=== PATIENT | male | born 1955 | race Two or more races ===

== ENCOUNTER 2016-04-16 00:28 | Inpatient (IN) | payer MEDICAID ==
[~2016-04-16] VITALS: Ht 175.3 cm; Wt 129.0 kg
[~2016-04-16 00:28] MED LIST: ASPI325T25 PO; ATOR40TA52 PO; CAR3125T PO; CLOP75TA41 PO; FAMO-12 PO; FENO134C PO; FURO40TA PO; LISI2.5T47 PO; NITR0.4S31 SL; POTA8CAP6 PO; ZOLP10TA PO
[2016-04-16 01:07] LABS: Basophils # (auto) 0.1 uL; Basophils % (auto) 1.1 % (0.0-2.0); Eosinophils # (auto) 0.1 uL; Eosinophils % (auto) 1.3 % (0.0-7.0); Hematocrit 47.2 % (41.0-53.0); Lymphocytes # (auto) 4.2 uL; Lymphocytes % (auto) 36.9 % (10.0-50.0); Mean Corpuscular Hemoglobin 31.3 pg (28.0-32.0); Mean Corpuscular Hgb Conc. 33.8 g/dL (32.0-36.0); Mean Corpuscular Volume 92.4 fL (80.0-100.0); Mean Platelet Volume 8.3 fL (7.4-10.4); Monocytes % (auto) 8.8 % (0.0-12.0); Neutrophils # (auto) 6.1 uL; Neutrophils % (auto) 51.9 % (37.0-80.0); Platelet Count (auto) 325 10^3/uL (140-450); Red Cell Distribution Width 13.6 % (11.6-16.0); White Blood Cell 11.5 10^3/uL (4.4-10.8)
[2016-04-16 01:17] LABS: INR 1.1 (0.9-1.15); Partial Thromboplastin Time 25.5 sec (22.64-33.71); Prothrombin Time 11.3 sec (9.37-12.3)
[2016-04-16 01:20] LABS: Albumin 3.5 g/dL (3.4-5.0); BUN/Creatinine Ratio 20.6; Calcium 8.4 mg/dL (8.5-10.1); Magnesium 2.5 mg/dL (1.6-2.6); Potassium 4.5 mmol/L (3.5-5.1)
[2016-04-16 01:23] LABS: Bilirubin, Total 0.4 mg/dL (0.2-1.0); Total Protein 7.1 g/dL (6.4-8.2)
[2016-04-16] MEDS ORDERED: HYDROmorphone HCL 2 MG/ML VL IV ONE (02:30)
[2016-04-16] MEDS ORDERED: ONDANSETRON HCL 4 MG/2 ML VIAL IV ONE (02:30)
[2016-04-16 02:34] LABS: Temperature: 21.6 C (20.0-25.0)
[2016-04-16] MEDS ORDERED: ACETAMINOPHEN 325 MG TAB PO PRN (07:00)
[2016-04-16] MEDS ORDERED: ONDANSETRON HCL 4 MG/2 ML VIAL IV PRN (07:00)
[2016-04-16] MEDS ORDERED: MORPHINE SULF INJ 2 MG/ML SYRINGE 1ML IV PRN (07:00)
[2016-04-16] MEDS ORDERED: NITROGLYCERIN 0.4 MG SL TAB SL PRN (07:00)
[2016-04-16] MEDS ORDERED: TEMAZEPAM 15 MG CAP PO PRN (07:00)
[2016-04-16] MEDS: FUROSEMIDE 40 MG TAB PO SCH ×3 (07:15→17:31)
[2016-04-16 08:41] VITALS: BP 110/78
[2016-04-16] MEDS: ENOXAPARIN SOD 40 MG/0.4 ML SYRINGE SC SCH (10:57)
[2016-04-16] MEDS: HYDROcodone-ACET 5/325MG TAB PO PRN ×2 (10:57→17:23)
[2016-04-16] MEDS: ASPirin 325 MG TAB PO SCH (10:57)
[2016-04-16] MEDS: CARVEDILOL 3.125 MG TAB PO SCH ×2 (10:59→21:55)
[2016-04-16] MEDS: POTASSIUM CHLORIDE 8 MEQ TAB PO SCH ×2 (10:59→21:54)
[2016-04-16] MEDS: CLOPIDOGREL BISULFATE 75 MG TAB PO SCH (10:59)
[2016-04-16] MEDS: LISINOPRIL 5 MG TAB PO SCH ×2 (10:59→21:54)
[2016-04-16] MEDS: FAMOTIDINE 20 MG TAB PO SCH ×2 (11:00→21:55)
[2016-04-16 11:40] VITALS: BP 107/67
[2016-04-16 16:40] VITALS: BP 112/72
[2016-04-16 21:57] VITALS: BP 115/70
[2016-04-16] MEDS ORDERED: ATORVASTATIN 20 MG TAB PO SCH (22:00)
[2016-04-17 05:41] VITALS: BP 131/86
[2016-04-17] MEDS: FUROSEMIDE 40 MG TAB PO SCH (05:48)
[2016-04-17 06:05] LABS: Basophils # (auto) 0.1 uL; Basophils % (auto) 0.7 % (0.0-2.0); Eosinophils # (auto) 0.2 uL; Eosinophils % (auto) 3.1 % (0.0-7.0); Hematocrit 46.1 % (41.0-53.0); Hemoglobin 15.4 g/dL (13.5-17.5); Lymphocytes # (auto) 3.3 uL; Lymphocytes % (auto) 42.1 % (10.0-50.0); Mean Corpuscular Hemoglobin 30.7 pg (28.0-32.0); Mean Corpuscular Hgb Conc. 33.4 g/dL (32.0-36.0); Mean Corpuscular Volume 91.9 fL (80.0-100.0); Mean Platelet Volume 8.7 fL (7.4-10.4); Monocytes # (auto) 0.7 uL; Monocytes % (auto) 8.9 % (0.0-12.0); Neutrophils # (auto) 3.5 uL; Neutrophils % (auto) 45.2 % (37.0-80.0); Platelet Count (auto) 286 10^3/uL (140-450); Red Cell Distribution Width 14.1 % (11.6-16.0); White Blood Cell 7.9 10^3/uL (4.4-10.8)
[2016-04-17 06:07] LABS: Albumin 3.2 g/dL (3.4-5.0); BUN/Creatinine Ratio 21.4; Bilirubin, Total 0.6 mg/dL (0.2-1.0); Calcium 7.9 mg/dL (8.5-10.1); Total Protein 6.8 g/dL (6.4-8.2)
[2016-04-17] MEDS: HYDROcodone-ACET 5/325MG TAB PO PRN ×2 (08:28→15:37)
[2016-04-17 08:53] VITALS: BP 139/83
[2016-04-17] MEDS: ENOXAPARIN SOD 40 MG/0.4 ML SYRINGE SC SCH (09:08)
[2016-04-17] MEDS: FAMOTIDINE 20 MG TAB PO SCH (09:09)
[2016-04-17] MEDS: CARVEDILOL 3.125 MG TAB PO SCH (09:09)
[2016-04-17] MEDS: POTASSIUM CHLORIDE 8 MEQ TAB PO SCH (09:11)
[2016-04-17] MEDS: CLOPIDOGREL BISULFATE 75 MG TAB PO SCH (09:11)
[2016-04-17] MEDS: ASPirin 325 MG TAB PO SCH (09:11)
[2016-04-17] MEDS: LISINOPRIL 5 MG TAB PO SCH (09:11)
[2016-04-17 13:00] VITALS: BP 111/77
[2016-04-17 17:00] VITALS: BP 150/82
[2016-04-17 18:08] VITALS: BP 150/82
== END 2016-04-17 19:00 | disposition home or self-care (01) | DRG 198 ==
LOC: EDBD 00:28 → ER 00:30 → TELE 00:31 → TELE-E-ADS 08:38 → TELE-CENTR 09:38
PROVIDERS: ADMIT Internal Medicine; ATTEND Internal Medicine
DX: R07.9 Chest pain, unspecified (principal); I25.2 Old myocardial infarction; N17.9 Acute kidney failure, unspecified; I42.0 Dilated cardiomyopathy; Z76.82 Awaiting organ transplant status; E44.0 Moderate protein-calorie malnutrition; Z68.41 Body mass index [BMI] 40.0-44.9, adult; I50.9 Heart failure, unspecified; I13.0 Hypertensive heart and chronic kidney disease with heart failure and stage 1 through stage 4 chronic kidney disease, or unspecified chronic kidney disease; I25.5 Ischemic cardiomyopathy; E66.01 Morbid (severe) obesity due to excess calories; N18.9 Chronic kidney disease, unspecified; I25.10 Atherosclerotic heart disease of native coronary artery without angina pectoris; J45.909 Unspecified asthma, uncomplicated; K21.9 Gastro-esophageal reflux disease without esophagitis; E78.5 Hyperlipidemia, unspecified; Z86.73 Personal history of transient ischemic attack (TIA), and cerebral infarction without residual deficits; Z95.0 Presence of cardiac pacemaker; Z80.1 Family history of malignant neoplasm of trachea, bronchus and lung; Z82.49 Family history of ischemic heart disease and other diseases of the circulatory system; Z82.5 Family history of asthma and other chronic lower respiratory diseases; Z83.3 Family history of diabetes mellitus; Z82.3 Family history of stroke; Z83.42 Family history of familial hypercholesterolemia; Z95.1 Presence of aortocoronary bypass graft; Z83.49 Family history of other endocrine, nutritional and metabolic diseases; Z98.61 Coronary angioplasty status; Z79.899 Other long term (current) drug therapy; Z79.82 Long term (current) use of aspirin
CPT/HCPCS: 36415; 71010; 78582; 80053; 83735; 83880; 84484; 85025; 85049; 85379; 85610; 85730; 93005; 93306; 94761; 96374; 96375; J2405

== ENCOUNTER 2016-06-15 20:33 | Emergency (ER) | payer MEDICAID ==
[~2016-06-15] VITALS: Ht 175.3 cm; Wt 127.0 kg
[2016-06-15 21:33] VITALS: BP 109/73
[2016-06-15 22:58] LABS: Basophils # (auto) 0.1 uL; Basophils % (auto) 0.7 % (0.0-2.0); Eosinophils # (auto) 0.2 uL; Eosinophils % (auto) 2.2 % (0.0-7.0); Hematocrit 45.6 % (41.0-53.0); Hemoglobin 15.4 g/dL (13.5-17.5); Lymphocytes % (auto) 36.1 % (10.0-50.0); Mean Corpuscular Hemoglobin 31.1 pg (28.0-32.0); Mean Corpuscular Hgb Conc. 33.7 g/dL (32.0-36.0); Mean Corpuscular Volume 92.2 fL (80.0-100.0); Mean Platelet Volume 8.4 fL (7.4-10.4); Monocytes # (auto) 0.8 uL; Monocytes % (auto) 9.4 % (0.0-12.0); Neutrophils # (auto) 4.3 uL; Neutrophils % (auto) 51.6 % (37.0-80.0); Platelet Count (auto) 341 10^3/uL (140-450); Red Cell Distribution Width 15.3 % (11.6-16.0); White Blood Cell 8.3 10^3/uL (4.4-10.8)
[2016-06-15 23:20] LABS: Albumin 3.8 g/dL (3.4-5.0); BUN/Creatinine Ratio 15.8; Calcium 8.8 mg/dL (8.5-10.1); Magnesium 2.5 mg/dL (1.6-2.6); Potassium 4.3 mmol/L (3.5-5.1)
[2016-06-15 23:25] LABS: Bilirubin, Total 0.3 mg/dL (0.2-1.0); Total Protein 7.5 g/dL (6.4-8.2)
[2016-06-15 23:31] LABS: Urine Bilirubin Negative (Negative); Urine Blood Negative /uL (Negative); Urine Color Yellow (Yellow); Urine Glucose Normal (Normal); Urine Hyaline Cast MANY /lpf (0 - 2); Urine Ketone Negative (Negative); Urine Mucus FEW (None Seen); Urine Nitrite Negative (Negative); Urine RBC 1 /hpf (0 - 3); Urine Sperm PRESENT /hpf (None Seen); Urine Squamous Epithelial Cell FEW /hpf (<5); Urine Urobilinogen Normal (Negative)
[2016-06-15 23:32] LABS: B-Type Natriuretic Peptide 192.01 pg/mL (0-100); Temperature: 22.2 C (20.0-25.0)
[2016-06-15] MEDS ORDERED: diphenhdrAMINE HCL 25 MG CAP PO ONE (23:45)
[2016-06-15] MEDS ORDERED: methylPREDNISolone SOD SUCC 125 MG/2 ML VL IM ONE (23:45)
== END 2016-06-16 03:24 | disposition left against medical advice (07) ==
LOC: ER 20:45
DX: M54.5 Low back pain (principal); R10.9 Unspecified abdominal pain; Z53.21 Procedure and treatment not carried out due to patient leaving prior to being seen by health care provider
CPT/HCPCS: 36415; 72100; 74176; 80053; 81001; 83735; 83880; 84484; 85025; 93005

== ENCOUNTER 2016-07-03 16:19 | Inpatient (IN) | payer MEDICAID ==
[~2016-07-03] VITALS: Ht 172.7 cm; Wt 98.5 kg
[2016-07-03] MEDS ORDERED: ONDANSETRON HCL 4 MG/2 ML VIAL IV ONE ×2 (17:00→18:30)
[2016-07-03] MEDS ORDERED: MORPHINE SULFATE 4 MG/ML SYRG IV ONE (17:00)
[2016-07-03] MEDS ORDERED: ASPirin 81 mg TAB PO ONE (17:00)
[2016-07-03 17:19] LABS: Albumin 3.4 g/dL (3.4-5.0); BUN/Creatinine Ratio 24.5; Calcium 8.6 mg/dL (8.5-10.1); Potassium 4.3 mmol/L (3.5-5.1)
[2016-07-03 17:23] LABS: Bilirubin, Total 0.2 mg/dL (0.2-1.0); Total Protein 7.2 g/dL (6.4-8.2)
[2016-07-03 17:25] LABS: Basophils # (auto) 0 uL; Basophils % (auto) 0.5 % (0.0-2.0); Eosinophils # (auto) 0.2 uL; Eosinophils % (auto) 2.5 % (0.0-7.0); Hemoglobin 15.4 g/dL (13.5-17.5); Lymphocytes # (auto) 2.9 uL; Lymphocytes % (auto) 36.3 % (10.0-50.0); Mean Corpuscular Hemoglobin 31.1 pg (28.0-32.0); Mean Corpuscular Hgb Conc. 33.6 g/dL (32.0-36.0); Mean Corpuscular Volume 92.5 fL (80.0-100.0); Mean Platelet Volume 8.8 fL (7.4-10.4); Monocytes # (auto) 0.8 uL; Monocytes % (auto) 10.7 % (0.0-12.0); Platelet Count (auto) 309 10^3/uL (140-450); Red Cell Distribution Width 14.9 % (11.6-16.0); White Blood Cell 7.9 10^3/uL (4.4-10.8)
[2016-07-03 18:00] LABS: B-Type Natriuretic Peptide 255.5 pg/mL (0-100); Temperature: 23.9 C (20.0-25.0)
[2016-07-03] MEDS ORDERED: MORPHINE SULF INJ 2 MG/ML SYRINGE 1ML IV ONE (18:30)
[2016-07-03] MEDS ORDERED: NITROGLYCERIN 0.4 MG SL TAB SL PRN ×2 (19:00)
[2016-07-03] MEDS ORDERED: MORPHINE SULF INJ 2 MG/ML SYRINGE 1ML IV PRN (19:00)
[2016-07-03] MEDS ORDERED: ALUM & MAG HYDROX-SIMETH LIQ(MAALOX) 30 ML PO PRN (19:00)
[2016-07-03] MEDS ORDERED: ONDANSETRON HCL 4 MG/2 ML VIAL IV PRN (19:00)
[2016-07-03] MEDS ORDERED: ACETAMINOPHEN 325 MG TAB PO PRN (19:00)
[2016-07-03] MEDS ORDERED: LORazepam 0.5 MG TAB PO PRN (19:00)
[2016-07-03] MEDS ORDERED: CLOPIDOGREL BISULFATE 75 MG TAB PO ONE (19:15)
[2016-07-03] MEDS ORDERED: DOCUSATE SOD 100 MG CAP PO ONE (19:15)
[2016-07-03] MEDS ORDERED: FUROSEMIDE 40 MG TAB PO ONE (19:15)
[2016-07-03 19:33] LABS: INR 0.96 (0.9-1.15); Prothrombin Time 10.4 sec (9.37-12.3)
[2016-07-03] MEDS: ENOXAPARIN SOD 100 MG/1 ML SYRINGE SC SCH (20:02)
[2016-07-03] MEDS: MORPHINE SULF INJ 2 MG/ML SYRINGE 1ML IV PRN ×2 (20:05→22:07)
[2016-07-03 20:44] VITALS: BP 109/68
[2016-07-03 20:50] VITALS: BP 109/68
[2016-07-03] MEDS: CARVEDILOL 3.125 MG TAB PO SCH (21:57)
[2016-07-03] MEDS: ATORVASTATIN 20 MG TAB PO SCH (21:58)
[2016-07-03] MEDS: POTASSIUM CHLORIDE 8 MEQ TAB PO SCH (21:58)
[2016-07-03] MEDS: ZOLPIDEM TARTRATE 5 MG TAB PO PRN (21:58)
[2016-07-03] MEDS: LISINOPRIL 5 MG TAB PO SCH (21:59)
[2016-07-03] MEDS: SODIUM CHLOR 0.9% PF (SALINE LOCK) 10ML VIAL IV SCH (22:01)
[2016-07-04] MEDS: MORPHINE SULF INJ 2 MG/ML SYRINGE 1ML IV PRN (04:52)
[2016-07-04 05:00] VITALS: BP 127/87
[2016-07-04 05:15] LABS: Urine Bilirubin Negative (Negative); Urine Blood Negative /uL (Negative); Urine Color Yellow (Yellow); Urine Glucose Normal (Normal); Urine Ketone Negative (Negative); Urine Nitrite Negative (Negative); Urine RBC <1 /hpf (0 - 3); Urine Sperm PRESENT /hpf (None Seen); Urine Urobilinogen Normal (Negative)
[2016-07-04] MEDS: ENOXAPARIN SOD 100 MG/1 ML SYRINGE SC SCH ×2 (05:33→17:54)
[2016-07-04] MEDS: FUROSEMIDE 40 MG TAB PO SCH ×2 (05:34→17:55)
[2016-07-04] MEDS: SODIUM CHLOR 0.9% PF (SALINE LOCK) 10ML VIAL IV SCH ×3 (05:34→21:14)
[2016-07-04 05:51] LABS: Basophils # (auto) 0 uL; Basophils % (auto) 0.7 % (0.0-2.0); Eosinophils # (auto) 0.3 uL; Eosinophils % (auto) 3.5 % (0.0-7.0); Hematocrit 45.4 % (41.0-53.0); Hemoglobin 15.1 g/dL (13.5-17.5); Lymphocytes # (auto) 2.8 uL; Lymphocytes % (auto) 39.8 % (10.0-50.0); Mean Corpuscular Hemoglobin 30.9 pg (28.0-32.0); Mean Corpuscular Hgb Conc. 33.2 g/dL (32.0-36.0); Mean Corpuscular Volume 93.2 fL (80.0-100.0); Mean Platelet Volume 8.6 fL (7.4-10.4); Monocytes # (auto) 0.6 uL; Monocytes % (auto) 8.9 % (0.0-12.0); Neutrophils # (auto) 3.4 uL; Neutrophils % (auto) 47.1 % (37.0-80.0); Platelet Count (auto) 268 10^3/uL (140-450); Red Cell Distribution Width 14.5 % (11.6-16.0); White Blood Cell 7.1 10^3/uL (4.4-10.8)
[2016-07-04 06:34] LABS: Albumin 3.4 g/dL (3.4-5.0); BUN/Creatinine Ratio 26.4; Bilirubin, Total 0.4 mg/dL (0.2-1.0); Calcium 8.3 mg/dL (8.5-10.1); Magnesium 2.4 mg/dL (1.6-2.6); Potassium 3.9 mmol/L (3.5-5.1); Total Protein 7.2 g/dL (6.4-8.2)
[2016-07-04 08:00] VITALS: BP 127/87
[2016-07-04 09:05] VITALS: BP 112/63
[2016-07-04] MEDS: FENOFIBRATE 134MG PO SCH (10:00)
[2016-07-04] MEDS: CLOPIDOGREL BISULFATE 75 MG TAB PO SCH (10:10)
[2016-07-04] MEDS: POTASSIUM CHLORIDE 8 MEQ TAB PO SCH ×2 (10:10→21:14)
[2016-07-04] MEDS: DOCUSATE SOD 100 MG CAP PO SCH (10:10)
[2016-07-04] MEDS: CARVEDILOL 3.125 MG TAB PO SCH ×2 (10:11→21:11)
[2016-07-04] MEDS: LISINOPRIL 5 MG TAB PO SCH ×2 (10:11→21:12)
[2016-07-04] MEDS: ASPirin-EC 325mg tab PO SCH (10:19)
[2016-07-04 12:55] VITALS: BP 125/61
[2016-07-04] MEDS: ALUM & MAG HYDROX-SIMETH LIQ(MAALOX) 30 ML PO PRN (13:39)
[2016-07-04] MEDS: HYDROcodone-ACET 5/325MG TAB PO PRN ×2 (13:39→21:13)
[2016-07-04 17:00] VITALS: BP 132/79
[2016-07-04] MEDS: ZOLPIDEM TARTRATE 5 MG TAB PO PRN (21:12)
[2016-07-04] MEDS: ATORVASTATIN 20 MG TAB PO SCH (21:12)
[2016-07-04 22:09] VITALS: BP 99/68
[2016-07-05 05:00] VITALS: BP 95/58
[2016-07-05] MEDS: FUROSEMIDE 40 MG TAB PO SCH (06:00)
[2016-07-05] MEDS: SODIUM CHLOR 0.9% PF (SALINE LOCK) 10ML VIAL IV SCH ×2 (06:28→14:16)
[2016-07-05] MEDS: ENOXAPARIN SOD 100 MG/1 ML SYRINGE SC SCH (06:36)
[2016-07-05 06:41] VITALS: BP 117/62
[2016-07-05 08:00] VITALS: BP 117/62
[2016-07-05] MEDS: ALUM & MAG HYDROX-SIMETH LIQ(MAALOX) 30 ML PO PRN (08:43)
[2016-07-05] MEDS: HYDROcodone-ACET 5/325MG TAB PO PRN (09:51)
[2016-07-05] MEDS: CARVEDILOL 3.125 MG TAB PO SCH (09:52)
[2016-07-05] MEDS: CLOPIDOGREL BISULFATE 75 MG TAB PO SCH (09:52)
[2016-07-05] MEDS: LISINOPRIL 5 MG TAB PO SCH (09:54)
[2016-07-05] MEDS: POTASSIUM CHLORIDE 8 MEQ TAB PO SCH (09:54)
[2016-07-05] MEDS: DOCUSATE SOD 100 MG CAP PO SCH (09:55)
[2016-07-05] MEDS: ASPirin-EC 325mg tab PO SCH (09:55)
[2016-07-05] MEDS: FENOFIBRATE 134MG PO SCH (10:00)
[2016-07-05 10:49] VITALS: BP 113/77
== END 2016-07-05 14:20 | disposition home or self-care (01) | DRG 194 ==
LOC: EDBD 16:19 → ER 16:23 → TELE 16:24 → TELE-WESTW 20:48
PROVIDERS: ADMIT Internal Medicine; ATTEND Internal Medicine
DX: I13.0 Hypertensive heart and chronic kidney disease with heart failure and stage 1 through stage 4 chronic kidney disease, or unspecified chronic kidney disease (principal); Z76.82 Awaiting organ transplant status; N18.3 Chronic kidney disease, stage 3 (moderate); E66.01 Morbid (severe) obesity due to excess calories; I73.9 Peripheral vascular disease, unspecified; E78.5 Hyperlipidemia, unspecified; E66.9 Obesity, unspecified; K21.9 Gastro-esophageal reflux disease without esophagitis; Z68.33 Body mass index [BMI] 33.0-33.9, adult; I25.10 Atherosclerotic heart disease of native coronary artery without angina pectoris; I25.2 Old myocardial infarction; I25.5 Ischemic cardiomyopathy; I50.43 Acute on chronic combined systolic (congestive) and diastolic (congestive) heart failure; J45.909 Unspecified asthma, uncomplicated; Z82.3 Family history of stroke; Z82.49 Family history of ischemic heart disease and other diseases of the circulatory system; Z86.73 Personal history of transient ischemic attack (TIA), and cerebral infarction without residual deficits; Z91.19 Patient's noncompliance with other medical treatment and regimen; Z95.0 Presence of cardiac pacemaker; Z95.1 Presence of aortocoronary bypass graft; Z95.5 Presence of coronary angioplasty implant and graft; Z95.810 Presence of automatic (implantable) cardiac defibrillator; Z79.82 Long term (current) use of aspirin; Z80.9 Family history of malignant neoplasm, unspecified
CPT/HCPCS: 36415; 71020; 80053; 80061; 81001; 83735; 83880; 84484; 85025; 85610; 93005; 96374; 96375; 96376; J2405

== ENCOUNTER 2016-08-13 10:09 | Inpatient (IN) | payer MEDICAID ==
[~2016-08-13] VITALS: Ht 188 cm; Wt 119.6 kg
[2016-08-13] MEDS ORDERED: SODIUM CHLORIDE 0.9% 1,000 ML IV ONE (10:18)
[2016-08-13] MEDS ORDERED: MORPHINE SULFATE 4 MG/ML SYRG IV ONE ×2 (10:30→13:15)
[2016-08-13] MEDS ORDERED: ONDANSETRON HCL 4 MG/2 ML VIAL IV ONE ×2 (10:30→13:15)
[2016-08-13 11:08] LABS: Albumin 3.4 g/dL (3.4-5.0); Calcium 9.1 mg/dL (8.5-10.1)
[2016-08-13 11:09] LABS: Basophils # (auto) 0.1 uL; Basophils % (auto) 0.7 % (0.0-2.0); Eosinophils # (auto) 0.2 uL; Eosinophils % (auto) 2.8 % (0.0-7.0); Hematocrit 45.6 % (41.0-53.0); Hemoglobin 15.4 g/dL (13.5-17.5); Lymphocytes # (auto) 2.6 uL; Lymphocytes % (auto) 34.8 % (10.0-50.0); Mean Corpuscular Hemoglobin 31.2 pg (28.0-32.0); Mean Corpuscular Hgb Conc. 33.7 g/dL (32.0-36.0); Mean Corpuscular Volume 92.6 fL (80.0-100.0); Mean Platelet Volume 8.5 fL (7.4-10.4); Monocytes # (auto) 0.6 uL; Monocytes % (auto) 7.7 % (0.0-12.0); Neutrophils # (auto) 4.1 uL; Platelet Count (auto) 382 10^3/uL (140-450); Red Cell Distribution Width 14.9 % (11.6-16.0); White Blood Cell 7.5 10^3/uL (4.4-10.8)
[2016-08-13 11:11] LABS: BUN/Creatinine Ratio 16.6; Magnesium 2.3 mg/dL (1.6-2.6)
[2016-08-13 11:16] LABS: B-Type Natriuretic Peptide 187.24 pg/mL (0-100); Bilirubin, Total 0.3 mg/dL (0.2-1.0); Temperature: 24.3 C (20.0-25.0); Total Protein 7.9 g/dL (6.4-8.2)
[2016-08-13] MEDS ORDERED: MORPHINE SULF INJ 2 MG/ML SYRINGE 1ML IV PRN (15:15)
[2016-08-13] MEDS ORDERED: ONDANSETRON HCL 4 MG/2 ML VIAL IV PRN (15:15)
[2016-08-13] MEDS ORDERED: NITROGLYCERIN 0.4 MG SL TAB SL PRN (15:15)
[2016-08-13] MEDS ORDERED: ASPirin 81 mg TAB PO ONE (15:45)
[2016-08-13] MEDS: POTASSIUM CHL 10 Meq TABLET PO SCH (16:00)
[2016-08-13] MEDS: FUROSEMIDE 40 MG TAB PO SCH (16:00)
[2016-08-13] MEDS ORDERED: LISINOPRIL 5 MG TAB PO ONE (16:15)
[2016-08-13] MEDS ORDERED: PANTOPRAZOLE 40 MG TAB PO ONE (16:15)
[2016-08-13] MEDS ORDERED: CLOPIDOGREL BISULFATE 75 MG TAB PO ONE (16:15)
[2016-08-13] MEDS: HYDROcodone-ACET 5/325MG TAB PO PRN (21:38)
[2016-08-13] MEDS: CARVEDILOL 3.125 MG TAB PO SCH (21:38)
[2016-08-13] MEDS: ATORVASTATIN 20 MG TAB PO SCH (21:38)
[2016-08-13] MEDS: ZOLPIDEM TARTRATE 5 MG TAB PO PRN (22:46)
[2016-08-14] VITALS (9 sets, daily range): BP systolic 100–154; BP diastolic 50–87
[2016-08-14] MEDS: POTASSIUM CHL 10 Meq TABLET PO SCH (09:47)
[2016-08-14] MEDS: PANTOPRAZOLE 40 MG TAB PO SCH (09:47)
[2016-08-14] MEDS: LISINOPRIL 5 MG TAB PO SCH (09:48)
[2016-08-14] MEDS: ASPirin 81 mg TAB PO SCH (09:48)
[2016-08-14] MEDS: CLOPIDOGREL BISULFATE 75 MG TAB PO SCH (09:48)
[2016-08-14] MEDS: FUROSEMIDE 40 MG TAB PO SCH (09:49)
[2016-08-14] MEDS: CARVEDILOL 3.125 MG TAB PO SCH ×2 (09:49→21:29)
[2016-08-14] MEDS: HYDROcodone-ACET 5/325MG TAB PO PRN (09:49)
[2016-08-14] MEDS: MORPHINE SULF INJ 2 MG/ML SYRINGE 1ML IV PRN ×2 (14:41→21:24)
[2016-08-14] MEDS: ATORVASTATIN 20 MG TAB PO SCH (21:05)
[2016-08-14] MEDS: ZOLPIDEM TARTRATE 5 MG TAB PO PRN (21:23)
[2016-08-15 05:48] VITALS: BP 119/68
[2016-08-15 07:00] LABS: Albumin 3.2 g/dL (3.4-5.0); BUN/Creatinine Ratio 23.7; Bilirubin, Total 0.3 mg/dL (0.2-1.0); Calcium 8.5 mg/dL (8.5-10.1); Potassium 3.8 mmol/L (3.5-5.1); Total Protein 7.2 g/dL (6.4-8.2)
[2016-08-15 09:00] VITALS: BP 131/56
[2016-08-15] MEDS: PANTOPRAZOLE 40 MG TAB PO SCH (10:20)
[2016-08-15] MEDS: POTASSIUM CHL 10 Meq TABLET PO SCH (10:20)
[2016-08-15] MEDS: ASPirin 81 mg TAB PO SCH (10:20)
[2016-08-15] MEDS: FUROSEMIDE 40 MG TAB PO SCH (10:21)
[2016-08-15] MEDS: CARVEDILOL 3.125 MG TAB PO SCH (10:21)
[2016-08-15] MEDS: CLOPIDOGREL BISULFATE 75 MG TAB PO SCH (10:22)
[2016-08-15] MEDS: LISINOPRIL 5 MG TAB PO SCH (10:22)
[2016-08-15 13:00] VITALS: BP 153/99
== END 2016-08-15 12:00 | disposition home or self-care (01) | DRG 198 ==
LOC: EDBD 10:09 → ER 10:14 → TELE 10:15 → TELE-E-ADS 18:20 → TELE-CENTR 18:41
PROVIDERS: ADMIT Internal Medicine; ATTEND Internal Medicine
DX: R07.89 Other chest pain (principal); I25.10 Atherosclerotic heart disease of native coronary artery without angina pectoris; I13.0 Hypertensive heart and chronic kidney disease with heart failure and stage 1 through stage 4 chronic kidney disease, or unspecified chronic kidney disease; I42.9 Cardiomyopathy, unspecified; I50.9 Heart failure, unspecified; E44.1 Mild protein-calorie malnutrition; Z95.1 Presence of aortocoronary bypass graft; E78.5 Hyperlipidemia, unspecified; E66.9 Obesity, unspecified; Z95.810 Presence of automatic (implantable) cardiac defibrillator; J45.909 Unspecified asthma, uncomplicated; K21.9 Gastro-esophageal reflux disease without esophagitis; N18.2 Chronic kidney disease, stage 2 (mild); Z68.33 Body mass index [BMI] 33.0-33.9, adult; Z82.3 Family history of stroke; Z82.49 Family history of ischemic heart disease and other diseases of the circulatory system; Z86.73 Personal history of transient ischemic attack (TIA), and cerebral infarction without residual deficits; Z80.9 Family history of malignant neoplasm, unspecified; F19.10 Other psychoactive substance abuse, uncomplicated
CPT/HCPCS: 36415; 71010; 80053; 83735; 83880; 84484; 85025; 93005; 96361; 96374; 96375; 96376; 99291; J2405

== ENCOUNTER 2016-10-09 16:39 | Inpatient (IN) | payer MEDICAID ==
[~2016-10-09] VITALS: Ht 175.3 cm; Wt 119.0 kg
[2016-10-09 17:20] LABS: Basophils # (auto) 0.1 uL; Basophils % (auto) 0.9 % (0.0-2.0); CONDITION Y; Eosinophils # (auto) 0.3 uL; Eosinophils % (auto) 3.2 % (0.0-7.0); Hematocrit 44.4 % (41.0-53.0); Lymphocytes # (auto) 2.3 uL; Lymphocytes % (auto) 29.4 % (10.0-50.0); Mean Corpuscular Hemoglobin 30.9 pg (28.0-32.0); Mean Corpuscular Hgb Conc. 33.7 g/dL (32.0-36.0); Mean Corpuscular Volume 91.5 fL (80.0-100.0); Mean Platelet Volume 8.7 fL (7.4-10.4); Monocytes # (auto) 0.5 uL; Monocytes % (auto) 6.8 % (0.0-12.0); Neutrophils # (auto) 4.7 uL; Neutrophils % (auto) 59.7 % (37.0-80.0); Platelet Count (auto) 310 10^3/uL (140-450); Red Cell Distribution Width 15.6 % (11.6-16.0); White Blood Cell 7.9 10^3/uL (4.4-10.8)
[2016-10-09 17:30] LABS: Albumin 3.2 g/dL (3.4-5.0); BUN/Creatinine Ratio 12.5; Calcium 7.8 mg/dL (8.5-10.1); Potassium 4.3 mmol/L (3.5-5.1)
[2016-10-09 17:34] LABS: Bilirubin, Total 0.5 mg/dL (0.2-1.0)
[2016-10-09 17:44] LABS: B-Type Natriuretic Peptide 442.51 pg/mL (0-100)
[2016-10-09 17:45] LABS: Temperature: 22.9 C (20.0-25.0)
[2016-10-09] MEDS ORDERED: ASPirin 81 mg TAB PO ONE (18:00)
[2016-10-09 18:23] LABS: INR 1.01 (0.9-1.15); Partial Thromboplastin Time 26.8 sec (22.64-33.71)
[2016-10-09] MEDS ORDERED: ONDANSETRON HCL 4 MG/2 ML VIAL IV ONE (18:45)
[2016-10-09] MEDS ORDERED: MORPHINE SULF INJ 2 MG/ML SYRINGE 1ML IV ONE (18:45)
[2016-10-09] MEDS ORDERED: ONDANSETRON HCL 4 MG/2 ML VIAL IV PRN (22:45)
[2016-10-09] MEDS ORDERED: ACETAMINOPHEN 325 MG TAB PO PRN (22:45)
[2016-10-09] MEDS ORDERED: FUROSEMIDE 20 MG/2 ML VIAL IV ONE (22:45)
[2016-10-09] MEDS ORDERED: NITROGLYCERIN 0.4 MG SL TAB SL PRN (23:15)
[2016-10-09] MEDS ORDERED: MORPHINE SULF INJ 2 MG/ML SYRINGE 1ML IV PRN (23:15)
[2016-10-10 00:24] VITALS: BP 118/80
[2016-10-10] MEDS: ALBUTEROL SULF 2.5 MG/0.5ML(0.5%) NEB SOLN NEB PRN ×2 (00:48→06:55)
[2016-10-10] MEDS: HYDROcodone-ACET 5/325MG TAB PO PRN ×2 (04:24→17:21)
[2016-10-10] MEDS ORDERED: FUROSEMIDE 40 MG TAB PO SCH (06:00)
[2016-10-10 06:56] LABS: Urine RBC None Seen /hpf (0 - 3)
[2016-10-10 07:03] LABS: Urine Bilirubin Negative (Negative); Urine Blood Negative /uL (Negative); Urine Color Yellow (Yellow); Urine Glucose Normal (Normal); Urine Ketone Negative (Negative); Urine Mucus FEW (None Seen); Urine Nitrite Negative (Negative); Urine Urobilinogen Normal (Negative)
[2016-10-10 08:18] VITALS: BP 111/73
[2016-10-10] MEDS: ENOXAPARIN SOD 40 MG/0.4 ML SYRINGE SC SCH (10:43)
[2016-10-10] MEDS: LISINOPRIL 5 MG TAB PO SCH (10:44)
[2016-10-10] MEDS: CARVEDILOL 3.125 MG TAB PO SCH ×2 (10:44→21:50)
[2016-10-10] MEDS: ASPirin 81 mg TAB PO SCH (10:45)
[2016-10-10] MEDS: FAMOTIDINE 20 MG TAB PO SCH ×2 (10:45→21:50)
[2016-10-10] MEDS ORDERED: FUROSEMIDE 20 MG TAB PO ONE (11:00)
[2016-10-10] MEDS: ALBUTEROL SULF 2.5 MG/0.5ML(0.5%) NEB SOLN NEB SCH ×2 (12:01→18:23)
[2016-10-10] MEDS: FUROSEMIDE 20 MG TAB PO SCH (17:21)
[2016-10-10 17:27] VITALS: BP 108/73
[2016-10-10 20:00] VITALS: BP 120/69
[2016-10-10 21:28] VITALS: BP 120/69
[2016-10-10] MEDS: MORPHINE SULF INJ 2 MG/ML SYRINGE 1ML IV PRN (21:51)
[2016-10-10] MEDS ORDERED: ATORVASTATIN 20 MG TAB PO SCH (22:00)
[2016-10-11] MEDS: ALBUTEROL SULF 2.5 MG/0.5ML(0.5%) NEB SOLN NEB SCH ×3 (00:14→12:16)
[2016-10-11 05:07] VITALS: BP 116/63
[2016-10-11] MEDS: FUROSEMIDE 20 MG TAB PO SCH (05:12)
[2016-10-11 06:30] LABS: Basophils # (auto) 0 uL; Basophils % (auto) 0.5 % (0.0-2.0); CONDITION Y; Eosinophils # (auto) 0.3 uL; Eosinophils % (auto) 3.6 % (0.0-7.0); Hemoglobin 15.9 g/dL (13.5-17.5); Lymphocytes # (auto) 2.9 uL; Lymphocytes % (auto) 35.9 % (10.0-50.0); Mean Corpuscular Hemoglobin 31.2 pg (28.0-32.0); Mean Corpuscular Hgb Conc. 33.9 g/dL (32.0-36.0); Mean Platelet Volume 8.7 fL (7.4-10.4); Monocytes # (auto) 0.6 uL; Monocytes % (auto) 8.1 % (0.0-12.0); Neutrophils # (auto) 4.2 uL; Neutrophils % (auto) 51.9 % (37.0-80.0); Platelet Count (auto) 300 10^3/uL (140-450); Red Cell Distribution Width 15.6 % (11.6-16.0); White Blood Cell 8.1 10^3/uL (4.4-10.8)
[2016-10-11 06:59] LABS: Potassium 3.8 mmol/L (3.5-5.1)
[2016-10-11 07:06] LABS: Albumin 3.4 g/dL (3.4-5.0); BUN/Creatinine Ratio 18.8; Calcium 8.7 mg/dL (8.5-10.1)
[2016-10-11 07:09] LABS: Bilirubin, Total 0.6 mg/dL (0.2-1.0); Total Protein 7.2 g/dL (6.4-8.2)
[2016-10-11] MEDS: MORPHINE SULF INJ 2 MG/ML SYRINGE 1ML IV PRN (08:22)
[2016-10-11 09:00] VITALS: BP 113/82
[2016-10-11] MEDS: FAMOTIDINE 20 MG TAB PO SCH (10:00)
[2016-10-11] MEDS: ENOXAPARIN SOD 40 MG/0.4 ML SYRINGE SC SCH (10:00)
[2016-10-11] MEDS: ASPirin 81 mg TAB PO SCH (10:00)
[2016-10-11] MEDS: LISINOPRIL 5 MG TAB PO SCH (10:00)
[2016-10-11] MEDS: CARVEDILOL 3.125 MG TAB PO SCH (10:00)
[2016-10-11 13:26] VITALS: BP 101/59
== END 2016-10-11 15:00 | disposition home or self-care (01) | DRG 198 ==
LOC: ER 16:39 → EDBD 16:39 → TELE 16:40 → TELE-E-ADS 10-10 08:22 → TELE-CENTR 10-10 16:01
PROVIDERS: ADMIT Internal Medicine; ATTEND Internal Medicine
DX: R07.89 Other chest pain (principal); I25.2 Old myocardial infarction; I50.43 Acute on chronic combined systolic (congestive) and diastolic (congestive) heart failure; I25.5 Ischemic cardiomyopathy; I11.0 Hypertensive heart disease with heart failure; E66.01 Morbid (severe) obesity due to excess calories; I25.10 Atherosclerotic heart disease of native coronary artery without angina pectoris; K21.9 Gastro-esophageal reflux disease without esophagitis; Z68.38 Body mass index [BMI] 38.0-38.9, adult; E78.5 Hyperlipidemia, unspecified; F12.90 Cannabis use, unspecified, uncomplicated; Z80.1 Family history of malignant neoplasm of trachea, bronchus and lung; Z82.3 Family history of stroke; Z82.49 Family history of ischemic heart disease and other diseases of the circulatory system; Z82.5 Family history of asthma and other chronic lower respiratory diseases; Z83.3 Family history of diabetes mellitus; Z91.14 Patient's other noncompliance with medication regimen; Z95.1 Presence of aortocoronary bypass graft; F15.90 Other stimulant use, unspecified, uncomplicated; Z79.82 Long term (current) use of aspirin; Z80.9 Family history of malignant neoplasm, unspecified; Z71.89 Other specified counseling; Z83.2 Family history of diseases of the blood and blood-forming organs and certain disorders involving the immune mechanism; Z83.49 Family history of other endocrine, nutritional and metabolic diseases; T43.625A Adverse effect of amphetamines, initial encounter
CPT/HCPCS: 36415; 71010; 80053; 80307; 81001; 83880; 84443; 84484; 85025; 85610; 85730; 93005; 94640; 94761; 96374; 96375; J2405

== ENCOUNTER 2017-07-29 13:07 | Inpatient (IN) | payer MEDICAID ==
[~2017-07-29] VITALS: Ht 175.3 cm; Wt 114.6 kg
[2017-07-29 13:50] LABS: Basophils # (auto) 0 uL; Basophils % (auto) 0.6 % (0.0-2.0); Eosinophils # (auto) 0.2 uL; Eosinophils % (auto) 2.4 % (0.0-7.0); Hemoglobin 16.3 g/dL (13.5-17.5); Lymphocytes # (auto) 2.3 uL; Lymphocytes % (auto) 28.7 % (10.0-50.0); Mean Corpuscular Hemoglobin 30.7 pg (28.0-32.0); Mean Corpuscular Hgb Conc. 32.6 g/dL (32.0-36.0); Mean Corpuscular Volume 94.2 fL (80.0-100.0); Monocytes # (auto) 0.9 uL; Monocytes % (auto) 11.4 % (0.0-12.0); Neutrophils # (auto) 4.5 uL; Neutrophils % (auto) 56.9 % (37.0-80.0); Platelet Count (auto) 310 10^3/uL (140-450); Red Blood Cells 5.31 10^6/uL (4.5-5.90); Red Cell Distribution Width 16.3 % (11.8-14.3); White Blood Cell 7.9 10^3/uL (4.4-10.8)
[2017-07-29 14:13] LABS: Albumin 3.3 g/dL (3.4-5.0); BUN/Creatinine Ratio 24.6; Bilirubin, Total 0.4 mg/dL (0.2-1.0); Calcium 9.3 mg/dL (8.5-10.1); Potassium 4.6 mmol/L (3.5-5.1); Total Protein 7.5 g/dL (6.4-8.2)
[2017-07-29] MEDS ORDERED: ENOXAPARIN SOD 120 MG/0.8 ML SYRINGE SC ONE (14:30)
[2017-07-29] MEDS ORDERED: PROMETHAZINE HCL 25 MG/ML 1ML IV PRN (15:00)
[2017-07-29] MEDS ORDERED: ACETAMINOPHEN 500 MG TAB PO PRN (15:00)
[2017-07-29] MEDS ORDERED: NITROGLYCERIN 0.4 MG SL TAB SL PRN (15:00)
[2017-07-29] MEDS ORDERED: MORPHINE SULFATE 4 MG/ML SYR/VIAL IV PRN (15:00)
[2017-07-29] MEDS ORDERED: HYDROcodone-ACET 5/325MG TAB PO PRN (15:00)
[2017-07-29] MEDS ORDERED: LORazepam 0.5 MG TAB PO PRN (15:00)
[2017-07-29] MEDS: NITROGLYCERIN 0.2MG/HR TOPICAL PATCH TD SCH (15:15)
[2017-07-29 15:20] LABS: INR 1.02 (0.9-1.15); Partial Thromboplastin Time 22.6 sec (22.64-33.71); Prothrombin Time 11.1 sec (9.37-12.3)
[2017-07-29] MEDS: MORPHINE SULFATE 4 MG/ML SYR/VIAL IV PRN ×2 (15:23→20:08)
[2017-07-29 17:00] VITALS: BP 112/79
[2017-07-29 17:13] VITALS: BP 112/79
[2017-07-29] MEDS: FUROSEMIDE 40 MG TAB PO SCH (17:21)
[2017-07-29 17:58] LABS: Alcohol, Urine < 3.0 mg/dL (0-5); Amphetamine Screen, Urine NEGATIVE (NEGATIVE); Barbiturate Scree,Urine NEGATIVE (NEGATIVE); Benzodiazephine Screen, Urine NEGATIVE (NEGATIVE); Cannabinoid Screen, Urine NEGATIVE (NEGATIVE); Cocaine Screen, Urine NEGATIVE (NEGATIVE); Opiate Scree,Urine NEGATIVE (NEGATIVE); Phencyclidine Screen, Urine NEGATIVE (NEGATIVE)
[2017-07-29 17:59] LABS: Urine Bacteria NONE SEEN /hpf (None Seen); Urine Blood Negative /uL (Negative); Urine Mucus FEW (None Seen); Urine Specific Gravity 1.025 (1.001-1.035); Urine WBC <1 /hpf (0 - 3)
[2017-07-29] MEDS ORDERED: PATIENTS OWN MEDICATION (Zolpidem Tartrate (Ambien) 1 TAB) PO SCH (18:00)
[2017-07-29] MEDS ORDERED: ESCI10TA PO (18:41)
[2017-07-29] MEDS ORDERED: NAPR220C13 OR (18:41)
[2017-07-29] MEDS ORDERED: HYDRX10T PO (18:41)
[2017-07-29] MEDS ORDERED: CARV3.1240 PO (18:41)
[2017-07-29] MEDS ORDERED: BACL10TA PO (18:41)
[2017-07-29] MEDS ORDERED: METO-159 PO (18:41)
[2017-07-29] MEDS ORDERED: SPIR25TA89 PO (18:41)
[2017-07-29] MEDS ORDERED: DICL75TA2 PO (18:41)
[2017-07-29] MEDS ORDERED: TIZA4CAP PO (18:41)
[2017-07-29] MEDS ORDERED: MULTCAP45 PO (18:41)
[2017-07-29] MEDS ORDERED: BENZ100C97 PO (18:41)
[2017-07-29] MEDS: SODIUM CHLOR 0.9% PF (SALINE LOCK) 10ML VIAL/SYR IV SCH (21:49)
[2017-07-29] MEDS: CARVEDILOL 3.125 MG TAB PO SCH (21:50)
[2017-07-29] MEDS: POTASSIUM CHLORIDE 8 MEQ TAB PO SCH (21:50)
[2017-07-29] MEDS: FAMOTIDINE 20 MG TAB PO SCH (21:51)
[2017-07-29] MEDS: TEMAZEPAM 15 MG CAP PO PRN (21:51)
[2017-07-29] MEDS: ATORVASTATIN 20 MG TAB PO SCH (21:51)
[2017-07-29] MEDS: LISINOPRIL 5 MG TAB PO SCH (21:52)
[2017-07-29 22:00] VITALS: BP 104/71
[2017-07-30] MEDS: MORPHINE SULFATE 4 MG/ML SYR/VIAL IV PRN ×4 (04:31→19:53)
[2017-07-30 05:30] VITALS: BP 102/69
[2017-07-30] MEDS: SODIUM CHLOR 0.9% PF (SALINE LOCK) 10ML VIAL/SYR IV SCH ×3 (06:28→21:54)
[2017-07-30] MEDS: FUROSEMIDE 40 MG TAB PO SCH ×2 (06:36→18:00)
[2017-07-30 07:22] LABS: Cholesterol 196 mg/dL (< 200); HDL Cholesterol 38 mg/dL (40-59); LDL Cholesterol 142 mg/dL (< 100); Triglycerides 198 mg/dL (< 150)
[2017-07-30 09:00] VITALS: BP 113/68
[2017-07-30] MEDS: NITROGLYCERIN 0.2MG/HR TOPICAL PATCH TD SCH (09:42)
[2017-07-30] MEDS: ENOXAPARIN SOD 40 MG/0.4 ML SYRINGE SC SCH (09:42)
[2017-07-30] MEDS: LISINOPRIL 5 MG TAB PO SCH ×2 (09:43→21:54)
[2017-07-30] MEDS: PANTOPRAZOLE 40 MG TAB PO SCH (09:44)
[2017-07-30] MEDS: ASPirin-EC 325mg tab PO SCH (09:44)
[2017-07-30] MEDS: CLOPIDOGREL BISULFATE 75 MG TAB PO SCH (09:44)
[2017-07-30] MEDS: POTASSIUM CHLORIDE 8 MEQ TAB PO SCH ×2 (09:44→21:55)
[2017-07-30] MEDS: CARVEDILOL 3.125 MG TAB PO SCH ×2 (09:45→21:54)
[2017-07-30] MEDS: Fenofibrate 134 MG TAB PO SCH (09:45)
[2017-07-30] MEDS: FAMOTIDINE 20 MG TAB PO SCH ×2 (11:26→21:55)
[2017-07-30 12:00] VITALS: BP 103/61
[2017-07-30 17:00] VITALS: BP 102/64
[2017-07-30] MEDS: ATORVASTATIN 20 MG TAB PO SCH (21:55)
[2017-07-30] MEDS: TEMAZEPAM 15 MG CAP PO PRN (22:01)
[2017-07-30 22:39] VITALS: BP 98/69
[2017-07-31] MEDS: FUROSEMIDE 40 MG TAB PO SCH (05:27)
[2017-07-31] MEDS: SODIUM CHLOR 0.9% PF (SALINE LOCK) 10ML VIAL/SYR IV SCH ×2 (05:28→16:28)
[2017-07-31 05:56] VITALS: BP 94/59
[2017-07-31] MEDS: MORPHINE SULFATE 4 MG/ML SYR/VIAL IV PRN ×2 (06:18→13:54)
[2017-07-31 08:00] VITALS: BP 119/86
[2017-07-31 08:30] VITALS: BP 119/86
[2017-07-31] MEDS: FAMOTIDINE 20 MG TAB PO SCH (10:00)
[2017-07-31] MEDS: NITROGLYCERIN 0.2MG/HR TOPICAL PATCH TD SCH (10:00)
[2017-07-31] MEDS: Fenofibrate 134 MG TAB PO SCH (10:00)
[2017-07-31] MEDS: ASPirin-EC 325mg tab PO SCH (10:00)
[2017-07-31] MEDS: POTASSIUM CHLORIDE 8 MEQ TAB PO SCH (10:01)
[2017-07-31] MEDS: CLOPIDOGREL BISULFATE 75 MG TAB PO SCH (10:02)
[2017-07-31] MEDS: CARVEDILOL 3.125 MG TAB PO SCH (10:02)
[2017-07-31] MEDS: PANTOPRAZOLE 40 MG TAB PO SCH (10:02)
[2017-07-31] MEDS: ENOXAPARIN SOD 40 MG/0.4 ML SYRINGE SC SCH (10:03)
[2017-07-31] MEDS: LISINOPRIL 5 MG TAB PO SCH (10:03)
[2017-07-31 13:01] VITALS: BP 108/76
[2017-07-31] MEDS ORDERED: IOHEXOL 350 MG/ML 100ML IJ ONE (13:05)
[2017-07-31 17:08] VITALS: BP 122/91
== END 2017-07-31 17:00 | disposition home or self-care (01) | DRG 190 ==
LOC: EDBD 13:07 → ER 13:07 → TELE 13:08 → TELE-WESTW 17:06
PROVIDERS: ADMIT Internal Medicine; ATTEND Internal Medicine
DX: I21.4 Non-ST elevation (NSTEMI) myocardial infarction (principal); I50.43 Acute on chronic combined systolic (congestive) and diastolic (congestive) heart failure; D89.9 Disorder involving the immune mechanism, unspecified; N18.3 Chronic kidney disease, stage 3 (moderate); E66.01 Morbid (severe) obesity due to excess calories; I73.9 Peripheral vascular disease, unspecified; Z95.1 Presence of aortocoronary bypass graft; M94.0 Chondrocostal junction syndrome [Tietze]; I11.0 Hypertensive heart disease with heart failure; I25.10 Atherosclerotic heart disease of native coronary artery without angina pectoris; G47.30 Sleep apnea, unspecified; E78.5 Hyperlipidemia, unspecified; I25.5 Ischemic cardiomyopathy; I13.0 Hypertensive heart and chronic kidney disease with heart failure and stage 1 through stage 4 chronic kidney disease, or unspecified chronic kidney disease; R79.1 Abnormal coagulation profile; K21.9 Gastro-esophageal reflux disease without esophagitis; Z82.49 Family history of ischemic heart disease and other diseases of the circulatory system; I25.2 Old myocardial infarction; Z98.61 Coronary angioplasty status; Z95.810 Presence of automatic (implantable) cardiac defibrillator; Z91.19 Patient's noncompliance with other medical treatment and regimen; Z83.3 Family history of diabetes mellitus; Z82.3 Family history of stroke; Z80.1 Family history of malignant neoplasm of trachea, bronchus and lung; Z82.5 Family history of asthma and other chronic lower respiratory diseases; Z86.73 Personal history of transient ischemic attack (TIA), and cerebral infarction without residual deficits
CPT/HCPCS: 36415; 71045; 71275; 80053; 80061; 80307; 81001; 82550; 83880; 84484; 85025; 85379; 85610; 85652; 85730; 86141; 87081; 93005; 96372; 99291

== ENCOUNTER 2017-09-24 11:24 | Inpatient (IN) | payer MEDICAID ==
[~2017-09-24] VITALS: Ht 175.3 cm; Wt 123.3 kg
[~2017-09-24 11:24] MED LIST changes: +BACL10TA PO; +BENZ100C97 PO; +CARV3.1240 PO; +DICL75TA2 PO; +ESCI10TA PO; -FENO134C PO; +HYDRX10T PO; +METO-159 PO; +MULTCAP45 PO; +NAPR220C13 OR; -POTA8CAP6 PO; +SPIR25TA89 PO; +TIZA4CAP PO; -ZOLP10TA PO
[2017-09-24] MEDS ORDERED: SODIUM CHLORIDE 0.9% 1,000 ML IV ONE (11:32)
[2017-09-24] MEDS ORDERED: ASPirin 81 mg TAB PO ONE (11:45)
[2017-09-24] MEDS ORDERED: MORPHINE SULF INJ 2 MG/ML SYRINGE 1ML IV ONE (11:45)
[2017-09-24] MEDS ORDERED: ONDANSETRON HCL 4 MG/2 ML VIAL IV ONE (11:45)
[2017-09-24 13:08] LABS: Basophils # (auto) 0.1 uL; Eosinophils # (auto) 0.2 uL; Eosinophils % (auto) 2.7 % (0.0-7.0); Hemoglobin 14.1 g/dL (13.5-17.5); Lymphocytes # (auto) 2.2 uL; Lymphocytes % (auto) 35.7 % (10.0-50.0); Mean Corpuscular Hemoglobin 31.1 pg (28.0-32.0); Mean Corpuscular Hgb Conc. 33.5 g/dL (32.0-36.0); Mean Corpuscular Volume 92.9 fL (80.0-100.0); Monocytes # (auto) 0.7 uL; Monocytes % (auto) 12.1 % (0.0-12.0); Neutrophils % (auto) 48.5 % (37.0-80.0); Nucleated Red Blood Cells % 0.1 %; Platelet Count (auto) 265 10^3/uL (140-450); Red Blood Cells 4.52 10^6/uL (4.5-5.90); Red Cell Distribution Width 15.6 % (11.8-14.3); White Blood Cell 6.2 10^3/uL (4.4-10.8)
[2017-09-24 13:20] LABS: Partial Thromboplastin Time 25.7 sec (23.78-33.04); Prothrombin Time 10.7 sec (9.27-12.13)
[2017-09-24 13:33] LABS: Albumin 3.5 g/dL (3.4-5.0); BUN/Creatinine Ratio 22.6; Bilirubin, Total 0.3 mg/dL (0.2-1.0); Calcium 8.9 mg/dL (8.5-10.1); Magnesium 2.5 mg/dL (1.6-2.6); Potassium 4.9 mmol/L (3.5-5.1); Total Protein 7.1 g/dL (6.4-8.2)
[2017-09-24] MEDS ORDERED: ALUM & MAG HYDROX-SIMETH LIQ(MAALOX) 30 ML PO ONE (15:45)
[2017-09-24] MEDS ORDERED: NITROGLYCERIN 0.4 MG SL TAB SL PRN ×2 (15:45)
[2017-09-24] MEDS ORDERED: BACLOFEN 10 MG TAB PO PRN (15:45)
[2017-09-24] MEDS ORDERED: HYDROcodone-ACET 5/325MG TAB PO PRN (15:45)
[2017-09-24] MEDS ORDERED: NAPROXEN 500 MG TAB PO PRN (15:45)
[2017-09-24] MEDS ORDERED: ZOLPIDEM TARTRATE 5 MG TAB PO PRN (15:45)
[2017-09-24] MEDS ORDERED: ONDANSETRON HCL 4 MG/2 ML VIAL IV PRN (15:45)
[2017-09-24] MEDS ORDERED: TIZANIDINE 4MG PO PRN (15:45)
[2017-09-24] MEDS ORDERED: ACETAMINOPHEN 325 MG TAB PO PRN (15:45)
[2017-09-24] MEDS ORDERED: LORazepam 0.5 MG TAB PO PRN (15:45)
[2017-09-24] MEDS ORDERED: MORPHINE SULF INJ 2 MG/ML SYRINGE 1ML IV PRN ×2 (15:45)
[2017-09-24] MEDS ORDERED: BENZONATATE 100 MG PO PRN (15:45)
[2017-09-24] MEDS ORDERED: hydrOXYzine HCL 10 MG TAB PO PRN (16:00)
[2017-09-24 16:08] LABS: Urine Bacteria NONE SEEN /hpf (None Seen); Urine Blood Negative /uL (Negative); Urine Hyaline Cast FEW /lpf (0 - 2); Urine WBC <1 /hpf (0 - 3)
[2017-09-24 17:38] VITALS: BP 113/80
[2017-09-24] MEDS: CARVEDILOL 3.125 MG TAB PO SCH (21:19)
[2017-09-24] MEDS: SODIUM CHLOR 0.9% PF (SALINE LOCK) 10ML VIAL/SYR IV SCH (21:19)
[2017-09-24] MEDS: TROLAMINE SALICYLATE 10% TOP CREAM TOP SCH (21:20)
[2017-09-24] MEDS ORDERED: DICLOFENAC 75MG PO SCH (22:00)
[2017-09-24] MEDS ORDERED: METOPROLOL TARTRATE 50 MG TAB PO SCH (22:00)
[2017-09-24] MEDS ORDERED: ATORVASTATIN 20 MG TAB PO SCH (22:00)
[2017-09-24] MEDS ORDERED: CITALOPRAM HYDROBR 20 MG TAB PO SCH (22:00)
[2017-09-25] VITALS (7 sets, daily range): BP systolic 108–130; BP diastolic 64–79
[2017-09-25] MEDS: SODIUM CHLOR 0.9% PF (SALINE LOCK) 10ML VIAL/SYR IV SCH (05:49)
[2017-09-25 05:58] LABS: Basophils # (auto) 0.1 uL; Basophils % (auto) 0.9 % (0.0-2.0); Eosinophils # (auto) 0.3 uL; Eosinophils % (auto) 4.3 % (0.0-7.0); Hematocrit 40.9 % (41.0-53.0); Lymphocytes # (auto) 2.9 uL; Lymphocytes % (auto) 43.8 % (10.0-50.0); Mean Corpuscular Hemoglobin 32.1 pg (28.0-32.0); Mean Corpuscular Hgb Conc. 34.2 g/dL (32.0-36.0); Mean Corpuscular Volume 93.9 fL (80.0-100.0); Monocytes # (auto) 0.7 uL; Monocytes % (auto) 10.1 % (0.0-12.0); Neutrophils # (auto) 2.7 uL; Neutrophils % (auto) 40.9 % (37.0-80.0); Nucleated Red Blood Cells % 0.1 %; Platelet Count (auto) 230 10^3/uL (140-450); Red Blood Cells 4.36 10^6/uL (4.5-5.90); Red Cell Distribution Width 15.6 % (11.8-14.3); White Blood Cell 6.7 10^3/uL (4.4-10.8)
[2017-09-25] MEDS ORDERED: SPIRONOLACTONE 25 MG TAB PO SCH (06:00)
[2017-09-25 06:20] LABS: Albumin 3.4 g/dL (3.4-5.0); BUN/Creatinine Ratio 25.9; Bilirubin, Total 0.4 mg/dL (0.2-1.0); Calcium 8.5 mg/dL (8.5-10.1); Magnesium 2.5 mg/dL (1.6-2.6); Potassium 4.4 mmol/L (3.5-5.1); Total Protein 6.9 g/dL (6.4-8.2)
[2017-09-25] MEDS: CARVEDILOL 3.125 MG TAB PO SCH (09:34)
[2017-09-25] MEDS: TROLAMINE SALICYLATE 10% TOP CREAM TOP SCH (09:35)
[2017-09-25] MEDS ORDERED: ENALAPRIL MALEATE 2.5 MG TAB PO SCH (10:00)
[2017-09-25] MEDS ORDERED: DOCUSATE SOD 100 MG CAP PO SCH (10:00)
[2017-09-25] MEDS ORDERED: ASPirin 81 mg TAB PO SCH (10:00)
[2017-09-25] MEDS ORDERED: CLOPIDOGREL BISULFATE 75 MG TAB PO SCH (10:00)
[2017-09-25] MEDS ORDERED: MULTIPLE VITAMINS W/ MINERALS TAB PO SCH (10:00)
[2017-09-25] MEDS ORDERED: POTASSIUM CHL 20 Meq TABLET PO ONE (11:45)
[2017-09-25] MEDS ORDERED: FUROSEMIDE 40 MG/4 ML VIAL IV ONE (11:45)
[2017-09-25] MEDS ORDERED: CLOP75TA28 PO (11:54)
[2017-09-25] MEDS ORDERED: ISOS30TA4 PO (11:54)
== END 2017-09-25 13:38 | disposition home or self-care (01) | DRG 194 ==
LOC: ER 11:24 → EDBD 11:24 → TELE 11:25 → TELE-WESTW 17:46
PROVIDERS: ADMIT Internal Medicine; ATTEND Internal Medicine
DX: I13.0 Hypertensive heart and chronic kidney disease with heart failure and stage 1 through stage 4 chronic kidney disease, or unspecified chronic kidney disease (principal); Z68.41 Body mass index [BMI] 40.0-44.9, adult; I42.9 Cardiomyopathy, unspecified; Z95.1 Presence of aortocoronary bypass graft; I25.119 Atherosclerotic heart disease of native coronary artery with unspecified angina pectoris; I50.43 Acute on chronic combined systolic (congestive) and diastolic (congestive) heart failure; E66.01 Morbid (severe) obesity due to excess calories; K21.9 Gastro-esophageal reflux disease without esophagitis; N18.2 Chronic kidney disease, stage 2 (mild); E78.5 Hyperlipidemia, unspecified; G89.29 Other chronic pain; I25.2 Old myocardial infarction; Z98.61 Coronary angioplasty status; Z95.810 Presence of automatic (implantable) cardiac defibrillator; Z91.041 Radiographic dye allergy status; Z79.02 Long term (current) use of antithrombotics/antiplatelets; Z79.899 Other long term (current) drug therapy; Z86.73 Personal history of transient ischemic attack (TIA), and cerebral infarction without residual deficits
CPT/HCPCS: 36415; 71045; 80053; 80061; 81001; 83735; 83880; 84484; 85025; 85610; 85730; 94761; 96361; 96374; 96375; 96376; J2405

== ENCOUNTER 2017-11-03 13:55 | Inpatient (IN) | payer MEDICAID ==
[~2017-11-03] VITALS: Ht 180.3 cm; Wt 119.2 kg
[2017-11-03 07:45] VITALS: BP 110/64
[~2017-11-03 13:55] MED LIST changes: -BENZ100C97 PO; -CARV3.1240 PO; +ISOS30TA4 PO; -METO-159 PO; -MULTCAP45 PO; -NAPR220C13 OR; +POTA8TAB2 PO; +ZOLP5TAB5 PO
[2017-11-03] MEDS ORDERED: ONDANSETRON HCL 4 MG/2 ML VIAL IV ONE (15:00)
[2017-11-03] MEDS ORDERED: MORPHINE SULF INJ 2 MG/ML SYRINGE 1ML IV ONE (15:00)
[2017-11-03 15:14] LABS: Basophils # (auto) 0 uL; Basophils % (auto) 0.8 % (0.0-2.0); Eosinophils # (auto) 0.2 uL; Eosinophils % (auto) 4.4 % (0.0-7.0); Hematocrit 38.1 % (41.0-53.0); Hemoglobin 13.2 g/dL (13.5-17.5); Lymphocytes % (auto) 35.5 % (10.0-50.0); Mean Corpuscular Hgb Conc. 34.5 g/dL (32.0-36.0); Mean Corpuscular Volume 95.5 fL (80.0-100.0); Monocytes # (auto) 0.7 uL; Monocytes % (auto) 12.9 % (0.0-12.0); Neutrophils # (auto) 2.6 uL; Neutrophils % (auto) 46.4 % (37.0-80.0); Nucleated Red Blood Cells % 0.1 %; Platelet Count (auto) 264 10^3/uL (140-450); Red Cell Distribution Width 15.8 % (11.8-14.3); White Blood Cell 5.7 10^3/uL (4.4-10.8)
[2017-11-03 15:15] LABS: INR 0.98 (0.9-1.15); Prothrombin Time 10.5 sec (9.27-12.13)
[2017-11-03 15:36] LABS: Albumin 3.4 g/dL (3.4-5.0); BUN/Creatinine Ratio 22.5; Bilirubin, Total 0.5 mg/dL (0.2-1.0); Calcium 8.1 mg/dL (8.5-10.1); Magnesium 2.5 mg/dL (1.6-2.6); Potassium 3.9 mmol/L (3.5-5.1); Total Protein 6.7 g/dL (6.4-8.2)
[2017-11-03] MEDS ORDERED: LORazepam 0.5 MG TAB PO PRN (16:30)
[2017-11-03] MEDS ORDERED: Tizanidine Hydrochloride (Zanaflex) 4 MG PO PRN (16:30)
[2017-11-03] MEDS ORDERED: ZOLPIDEM TARTRATE 5 MG TAB PO PRN (16:30)
[2017-11-03] MEDS ORDERED: MORPHINE SULF INJ 2 MG/ML SYRINGE 1ML IV PRN (16:30)
[2017-11-03] MEDS ORDERED: PROMETHAZINE HCL 25 MG/ML 1ML IV PRN (16:30)
[2017-11-03] MEDS ORDERED: hydrOXYzine HCL 10 MG TAB PO PRN (16:30)
[2017-11-03] MEDS ORDERED: ACETAMINOPHEN 500 MG TAB PO PRN (16:30)
[2017-11-03] MEDS ORDERED: NITROGLYCERIN 0.4 MG SL TAB SL PRN (16:30)
[2017-11-03] MEDS ORDERED: LACTULOSE 20Gm/30ML SOLN PO PRN (16:30)
[2017-11-03 17:43] LABS: Alcohol, Urine < 3.0 mg/dL (0-5); Amphetamine Screen, Urine NEGATIVE (NEGATIVE); Barbiturate Scree,Urine NEGATIVE (NEGATIVE); Benzodiazephine Screen, Urine NEGATIVE (NEGATIVE); Cannabinoid Screen, Urine NEGATIVE (NEGATIVE); Cocaine Screen, Urine NEGATIVE (NEGATIVE); Opiate Scree,Urine NEGATIVE (NEGATIVE); Phencyclidine Screen, Urine NEGATIVE (NEGATIVE)
[2017-11-03] MEDS: SPIRONOLACTONE 25 MG TAB PO SCH (18:11)
[2017-11-03] MEDS: FUROSEMIDE 40 MG TAB PO SCH (18:11)
[2017-11-03] MEDS: ENOXAPARIN SOD 40 MG/0.4 ML SYRINGE SC SCH (18:11)
[2017-11-03] MEDS: ATORVASTATIN 20 MG TAB PO SCH (21:47)
[2017-11-03] MEDS: CITALOPRAM HYDROBR 20 MG TAB PO SCH (21:47)
[2017-11-03] MEDS: FAMOTIDINE 20 MG TAB PO SCH (21:47)
[2017-11-03] MEDS: POTASSIUM CHLORIDE 8 MEQ TAB PO SCH (21:47)
[2017-11-03] MEDS: TEMAZEPAM 15 MG CAP PO PRN (21:49)
[2017-11-03] MEDS: LISINOPRIL 5 MG TAB PO SCH (22:00)
[2017-11-03] MEDS: CARVEDILOL 3.125 MG TAB PO SCH (22:00)
[2017-11-04] VITALS (7 sets, daily range): BP systolic 94–108; BP diastolic 53–69
[2017-11-04] MEDS: SPIRONOLACTONE 25 MG TAB PO SCH ×2 (06:09→17:46)
[2017-11-04] MEDS: FUROSEMIDE 40 MG TAB PO SCH ×2 (06:10→17:46)
[2017-11-04 07:50] LABS: Basophils # (auto) 0.1 uL; Basophils % (auto) 0.8 % (0.0-2.0); Eosinophils # (auto) 0.2 uL; Eosinophils % (auto) 3.9 % (0.0-7.0); Hematocrit 38.1 % (41.0-53.0); Hemoglobin 13.1 g/dL (13.5-17.5); Lymphocytes # (auto) 2.4 uL; Mean Corpuscular Hemoglobin 32.6 pg (28.0-32.0); Mean Corpuscular Hgb Conc. 34.3 g/dL (32.0-36.0); Mean Corpuscular Volume 94.9 fL (80.0-100.0); Monocytes # (auto) 0.7 uL; Monocytes % (auto) 10.6 % (0.0-12.0); Neutrophils # (auto) 2.8 uL; Neutrophils % (auto) 45.7 % (37.0-80.0); Nucleated Red Blood Cells % 0.1 %; Platelet Count (auto) 242 10^3/uL (140-450); Red Blood Cells 4.01 10^6/uL (4.5-5.90); Red Cell Distribution Width 16.2 % (11.8-14.3); White Blood Cell 6.2 10^3/uL (4.4-10.8)
[2017-11-04 07:57] LABS: Cholesterol 194 mg/dL (< 200); HDL Cholesterol 40 mg/dL (40-59); LDL Cholesterol 136 mg/dL (< 100); Triglycerides 276 mg/dL (< 150)
[2017-11-04] MEDS: KETOROLAC TROMETH 30 MG/ML 1ML VIAL IV PRN ×2 (08:32→18:38)
[2017-11-04] MEDS: ENOXAPARIN SOD 40 MG/0.4 ML SYRINGE SC SCH (09:04)
[2017-11-04] MEDS: FAMOTIDINE 20 MG TAB PO SCH ×2 (09:05→22:32)
[2017-11-04] MEDS: POTASSIUM CHLORIDE 8 MEQ TAB PO SCH ×2 (09:05→22:56)
[2017-11-04] MEDS: CARVEDILOL 3.125 MG TAB PO SCH ×2 (09:05→22:30)
[2017-11-04] MEDS: ASPirin-EC 325mg tab PO SCH (09:05)
[2017-11-04] MEDS: ISOSORBIDE MONONITRATE 60 MG TAB PO SCH (09:06)
[2017-11-04] MEDS: LISINOPRIL 5 MG TAB PO SCH ×2 (09:06→22:31)
[2017-11-04] MEDS: CLOPIDOGREL BISULFATE 75 MG TAB PO SCH (09:06)
[2017-11-04] MEDS: traMADol HCL 50 MG TAB PO PRN (21:16)
[2017-11-04] MEDS: ATORVASTATIN 20 MG TAB PO SCH (22:31)
[2017-11-04] MEDS: CITALOPRAM HYDROBR 20 MG TAB PO SCH (22:32)
[2017-11-04] MEDS: TEMAZEPAM 15 MG CAP PO PRN (22:56)
[2017-11-05 05:13] VITALS: BP 112/72
[2017-11-05] MEDS: SPIRONOLACTONE 25 MG TAB PO SCH (06:30)
[2017-11-05] MEDS: FUROSEMIDE 40 MG TAB PO SCH (06:30)
[2017-11-05 06:53] LABS: BUN/Creatinine Ratio 21.5; Calcium 8.6 mg/dL (8.5-10.1); Potassium 3.8 mmol/L (3.5-5.1)
[2017-11-05 07:55] VITALS: BP 116/75
[2017-11-05 08:00] VITALS: BP 116/75
[2017-11-05] MEDS: ASPirin-EC 325mg tab PO SCH (09:23)
[2017-11-05] MEDS: ENOXAPARIN SOD 40 MG/0.4 ML SYRINGE SC SCH (09:23)
[2017-11-05] MEDS: KETOROLAC TROMETH 30 MG/ML 1ML VIAL IV PRN (09:24)
[2017-11-05] MEDS: CARVEDILOL 3.125 MG TAB PO SCH (09:25)
[2017-11-05] MEDS: FAMOTIDINE 20 MG TAB PO SCH (09:25)
[2017-11-05] MEDS: ISOSORBIDE MONONITRATE 60 MG TAB PO SCH (09:25)
[2017-11-05] MEDS: POTASSIUM CHLORIDE 8 MEQ TAB PO SCH (09:26)
[2017-11-05] MEDS: CLOPIDOGREL BISULFATE 75 MG TAB PO SCH (09:26)
[2017-11-05] MEDS: LISINOPRIL 5 MG TAB PO SCH (09:26)
[2017-11-05] MEDS ORDERED: DIGOXIN 0.125 MG TAB PO SCH (10:00)
[2017-11-05 11:51] VITALS: BP 116/75
[2017-11-05] MEDS: traMADol HCL 50 MG TAB PO PRN (12:42)
== END 2017-11-05 13:40 | disposition home or self-care (01) | DRG 190 ==
LOC: EDBD 13:55 → ER 13:55 → TELE 13:56 → TELE-WESTW 19:45
PROVIDERS: ADMIT Internal Medicine; ATTEND Internal Medicine
DX: I21.4 Non-ST elevation (NSTEMI) myocardial infarction (principal); I11.0 Hypertensive heart disease with heart failure; I50.22 Chronic systolic (congestive) heart failure; Z95.1 Presence of aortocoronary bypass graft; E78.5 Hyperlipidemia, unspecified; I25.810 Atherosclerosis of coronary artery bypass graft(s) without angina pectoris; E66.9 Obesity, unspecified; I25.5 Ischemic cardiomyopathy; K21.9 Gastro-esophageal reflux disease without esophagitis; Z79.82 Long term (current) use of aspirin; Z79.899 Other long term (current) drug therapy; Z80.1 Family history of malignant neoplasm of trachea, bronchus and lung; Z82.3 Family history of stroke; I25.2 Old myocardial infarction; Z82.49 Family history of ischemic heart disease and other diseases of the circulatory system; Z83.3 Family history of diabetes mellitus; Z82.5 Family history of asthma and other chronic lower respiratory diseases; Z86.73 Personal history of transient ischemic attack (TIA), and cerebral infarction without residual deficits; Z95.5 Presence of coronary angioplasty implant and graft; Z91.041 Radiographic dye allergy status; Z95.810 Presence of automatic (implantable) cardiac defibrillator
CPT/HCPCS: 36415; 71045; 80048; 80053; 80061; 80307; 82550; 83735; 83880; 84443; 84484; 85025; 85379; 85610; 85652; 85730; 86141; 87081; 93005; 96372; 96374; 96375; J1885; J2405

== ENCOUNTER 2017-11-07 09:38 | Inpatient (IN) | payer MEDICAID ==
[~2017-11-07] VITALS: Ht 175.3 cm; Wt 119.5 kg
[~2017-11-07 09:38] MED LIST changes: -BACL10TA PO; -DICL75TA2 PO; -HYDRX10T PO; -TIZA4CAP PO; -ZOLP5TAB5 PO
[2017-11-07] MEDS ORDERED: HEPARIN IN NS 1000U/500ML (2UNIT/ML) 500 ML BAG/KIT IV ONE (10:00)
[2017-11-07] MEDS ORDERED: NITROGLYCERIN 0.4 MG SL TAB SL ONE (10:00)
[2017-11-07] MEDS ORDERED: HEPARIN SODIUM (PORCINE) 5000 UNITS/ML 1ML VIAL IV ONE (10:00)
[2017-11-07 10:05] LABS: Basophils # (auto) 0.1 uL; Eosinophils # (auto) 0.2 uL; Eosinophils % (auto) 3.1 % (0.0-7.0); Hematocrit 41.7 % (41.0-53.0); Lymphocytes # (auto) 1.9 uL; Lymphocytes % (auto) 33.8 % (10.0-50.0); Mean Corpuscular Hgb Conc. 33.6 g/dL (32.0-36.0); Mean Corpuscular Volume 95.2 fL (80.0-100.0); Monocytes # (auto) 0.3 uL; Monocytes % (auto) 6.1 % (0.0-12.0); Neutrophils # (auto) 3.1 uL; Nucleated Red Blood Cells % 0.1 %; Platelet Count (auto) 282 10^3/uL (140-450); Red Blood Cells 4.38 10^6/uL (4.5-5.90); Red Cell Distribution Width 15.7 % (11.8-14.3); White Blood Cell 5.5 10^3/uL (4.4-10.8)
[2017-11-07 10:28] LABS: Albumin 3.7 g/dL (3.4-5.0); BUN/Creatinine Ratio 17.7; Bilirubin, Total 0.5 mg/dL (0.2-1.0); Calcium 8.8 mg/dL (8.5-10.1); Potassium 3.9 mmol/L (3.5-5.1); Total Protein 7.8 g/dL (6.4-8.2)
[2017-11-07] MEDS ORDERED: SODIUM CHLORIDE 0.9% 1,000 ML IV SCH (10:37)
[2017-11-07] MEDS ORDERED: ACETAMINOPHEN 500 MG TAB PO PRN (10:45)
[2017-11-07] MEDS ORDERED: NITROGLYCERIN 0.4 MG SL TAB SL PRN (10:45)
[2017-11-07] MEDS ORDERED: ASPirin-EC 325mg tab PO ONE (11:00)
[2017-11-07] MEDS ORDERED: CLOPIDOGREL BISULFATE 75 MG TAB PO ONE (11:00)
[2017-11-07] MEDS ORDERED: ISOSORBIDE MONONITRATE 60 MG TAB PO ONE (11:00)
[2017-11-07] MEDS: MORPHINE SULF INJ 2 MG/ML SYRINGE 1ML IV PRN ×2 (11:46→12:08)
[2017-11-07] MEDS: PROMETHAZINE HCL 25 MG/ML 1ML IV PRN ×2 (11:47→12:08)
[2017-11-07] MEDS ORDERED: methylPREDNISolone SOD SUCC 125 MG/2 ML VL ONE (12:39)
[2017-11-07] MEDS ORDERED: fentaNYL CITRATE 100 MCG/2 ML VL ONE (12:40)
[2017-11-07] MEDS ORDERED: diphenhdrAMINE HCL 50 MG/1 ML VL ONE (12:40)
[2017-11-07] MEDS ORDERED: SODIUM CHL 0.9% 50 ML ONE (12:40)
[2017-11-07] MEDS ORDERED: MIDAZOLAM HCL 1MG/1ML-2 ML VIAL ONE (12:40)
[2017-11-07] MEDS ORDERED: ANGIOMAX 250 MG VIAL IV ONE (12:40)
[2017-11-07] MEDS ORDERED: IOHEXOL 350 MG/ML 100ML IJ ONE (12:41)
[2017-11-07] MEDS ORDERED: LIDOCAINE 2%HCL (LOCAL ANESTH.) INJ 10ml MDV ONE (12:41)
[2017-11-07] MEDS ORDERED: ONDANSETRON HCL 4 MG/2 ML VIAL ONE (12:42)
[2017-11-07] MEDS ORDERED: FAMOTIDINE (10MG/ML) 2ML VL IV ONE (12:46)
[2017-11-07 17:00] VITALS: BP 116/72
[2017-11-07 17:04] VITALS: BP 116/72
[2017-11-07] MEDS: traMADol HCL 50 MG TAB PO PRN (19:35)
[2017-11-07 20:00] VITALS: BP 108/65
[2017-11-07] MEDS: KETOROLAC TROMETH 30 MG/ML 1ML VIAL IV PRN (21:09)
[2017-11-07 21:30] VITALS: BP 108/65
[2017-11-07] MEDS: CITALOPRAM HYDROBR 20 MG TAB PO SCH (21:47)
[2017-11-07] MEDS: ATORVASTATIN 20 MG TAB PO SCH (21:47)
[2017-11-07] MEDS: POTASSIUM CHLORIDE 8 MEQ TAB PO SCH (21:47)
[2017-11-07] MEDS: FAMOTIDINE 20 MG TAB PO SCH (21:48)
[2017-11-07] MEDS: TEMAZEPAM 15 MG CAP PO PRN (21:48)
[2017-11-07] MEDS: FUROSEMIDE 40 MG TAB PO SCH (21:48)
[2017-11-07] MEDS: SPIRONOLACTONE 25 MG TAB PO SCH (21:49)
[2017-11-07] MEDS: CARVEDILOL 3.125 MG TAB PO SCH (21:50)
[2017-11-07] MEDS: LISINOPRIL 5 MG TAB PO SCH (21:50)
[2017-11-07] MEDS ORDERED: FUROSEMIDE 40 MG PO SCH (22:00)
[2017-11-07] MEDS ORDERED: PATIENTS OWN MEDICATION (Escitalopram Oxalate (Lexapro) 10 MG) PO SCH (22:00)
[2017-11-07] MEDS ORDERED: PATIENTS OWN MEDICATION (Lisinopril 2.5 MG) PO SCH (22:00)
[2017-11-08 05:20] VITALS: BP 95/53
[2017-11-08 08:24] VITALS: BP 93/53
[2017-11-08] MEDS: FAMOTIDINE 20 MG TAB PO SCH ×2 (09:41→22:10)
[2017-11-08] MEDS: ASPirin-EC 325mg tab PO SCH (09:41)
[2017-11-08] MEDS: SPIRONOLACTONE 25 MG TAB PO SCH ×2 (09:41→22:11)
[2017-11-08] MEDS: CLOPIDOGREL BISULFATE 75 MG TAB PO SCH (09:42)
[2017-11-08] MEDS: CARVEDILOL 3.125 MG TAB PO SCH ×2 (09:42→22:00)
[2017-11-08] MEDS: ISOSORBIDE MONONITRATE 60 MG TAB PO SCH (09:43)
[2017-11-08] MEDS: LISINOPRIL 5 MG TAB PO SCH ×2 (09:43→22:11)
[2017-11-08] MEDS: FUROSEMIDE 40 MG TAB PO SCH ×2 (09:43→22:10)
[2017-11-08] MEDS: POTASSIUM CHLORIDE 8 MEQ TAB PO SCH ×2 (09:43→22:09)
[2017-11-08] MEDS: NITROGLYCERIN 0.2MG/HR TOPICAL PATCH TD SCH (09:44)
[2017-11-08] MEDS: traMADol HCL 50 MG TAB PO PRN (09:46)
[2017-11-08] MEDS ORDERED: ASPirin 81 mg TAB PO SCH (10:00)
[2017-11-08] MEDS ORDERED: PANTOPRAZOLE 40 MG TAB PO SCH (10:00)
[2017-11-08] MEDS ORDERED: PATIENTS OWN MEDICATION (Atorvastatin Calcium 40 MG) PO SCH (10:00)
[2017-11-08] MEDS ORDERED: PATIENTS OWN MEDICATION (Isosorbide Mononitrate (Isosorbide Mononitrate Er) 1 TAB) PO SCH (10:00)
[2017-11-08] MEDS: KETOROLAC TROMETH 30 MG/ML 1ML VIAL IV PRN ×2 (10:53→17:09)
[2017-11-08 12:49] VITALS: BP 87/49
[2017-11-08 17:20] VITALS: BP 93/60
[2017-11-08] MEDS: LORazepam 0.5 MG TAB PO PRN (18:42)
[2017-11-08 20:00] VITALS: BP 102/65
[2017-11-08 22:00] VITALS: BP 102/65
[2017-11-08] MEDS: ATORVASTATIN 20 MG TAB PO SCH (22:00)
[2017-11-08] MEDS: TEMAZEPAM 15 MG CAP PO PRN (22:10)
[2017-11-08] MEDS: CITALOPRAM HYDROBR 20 MG TAB PO SCH (22:10)
[2017-11-09] VITALS (7 sets, daily range): BP systolic 100–123; BP diastolic 67–78
[2017-11-09] MEDS: KETOROLAC TROMETH 30 MG/ML 1ML VIAL IV PRN ×4 (02:03→19:38)
[2017-11-09] MEDS: MORPHINE SULF INJ 2 MG/ML SYRINGE 1ML IV PRN (02:26)
[2017-11-09 06:32] LABS: Calcium 8.4 mg/dL (8.5-10.1)
[2017-11-09] MEDS: traMADol HCL 50 MG TAB PO PRN ×3 (07:54→22:21)
[2017-11-09] MEDS: NITROGLYCERIN 0.2MG/HR TOPICAL PATCH TD SCH (07:55)
[2017-11-09] MEDS: CARVEDILOL 3.125 MG TAB PO SCH ×2 (10:00→22:23)
[2017-11-09] MEDS: CLOPIDOGREL BISULFATE 75 MG TAB PO SCH (10:03)
[2017-11-09] MEDS: FAMOTIDINE 20 MG TAB PO SCH ×2 (10:03→22:22)
[2017-11-09] MEDS: ISOSORBIDE MONONITRATE 60 MG TAB PO SCH (10:03)
[2017-11-09] MEDS: POTASSIUM CHLORIDE 8 MEQ TAB PO SCH ×2 (10:03→22:20)
[2017-11-09] MEDS: LISINOPRIL 5 MG TAB PO SCH ×2 (10:04→22:21)
[2017-11-09] MEDS: ASPirin-EC 325mg tab PO SCH (10:04)
[2017-11-09] MEDS: FUROSEMIDE 40 MG TAB PO SCH ×2 (10:05→22:22)
[2017-11-09] MEDS: SPIRONOLACTONE 25 MG TAB PO SCH ×2 (10:05→22:23)
[2017-11-09] MEDS: ATORVASTATIN 20 MG TAB PO SCH (22:21)
[2017-11-09] MEDS: TEMAZEPAM 15 MG CAP PO PRN (22:22)
[2017-11-09] MEDS: CITALOPRAM HYDROBR 20 MG TAB PO SCH (22:22)
[2017-11-10] MEDS: KETOROLAC TROMETH 30 MG/ML 1ML VIAL IV PRN ×3 (02:00→18:31)
[2017-11-10 04:39] VITALS: BP 104/59
[2017-11-10 08:54] VITALS: BP 100/80
[2017-11-10] MEDS: CLOPIDOGREL BISULFATE 75 MG TAB PO SCH (09:48)
[2017-11-10] MEDS: FAMOTIDINE 20 MG TAB PO SCH ×2 (09:49→22:30)
[2017-11-10] MEDS: SPIRONOLACTONE 25 MG TAB PO SCH ×2 (09:49→22:31)
[2017-11-10] MEDS: traMADol HCL 50 MG TAB PO PRN ×2 (09:49→22:31)
[2017-11-10] MEDS: ASPirin-EC 325mg tab PO SCH (09:49)
[2017-11-10] MEDS: CARVEDILOL 3.125 MG TAB PO SCH ×2 (09:50→22:00)
[2017-11-10] MEDS: ISOSORBIDE MONONITRATE 60 MG TAB PO SCH (09:50)
[2017-11-10] MEDS: POTASSIUM CHLORIDE 8 MEQ TAB PO SCH ×2 (09:51→22:29)
[2017-11-10] MEDS: FUROSEMIDE 40 MG TAB PO SCH ×2 (09:51→22:31)
[2017-11-10] MEDS: NITROGLYCERIN 0.2MG/HR TOPICAL PATCH TD SCH (09:51)
[2017-11-10] MEDS: LISINOPRIL 5 MG TAB PO SCH ×2 (09:51→22:29)
[2017-11-10] MEDS ORDERED: AMOXICILLIN/CLAVUL 875 MG TAB PO ONE (10:15)
[2017-11-10 10:30] LABS: Partial Thromboplastin Time 25.4 sec (23.78-33.04); Prothrombin Time 10.7 sec (9.27-12.13)
[2017-11-10 12:00] VITALS: BP 104/70
[2017-11-10 16:50] VITALS: BP 93/53
[2017-11-10] MEDS: buPROPion HCL 100 MG TAB PO SCH (18:31)
[2017-11-10 20:00] VITALS: BP 112/70
[2017-11-10 21:34] VITALS: BP 112/70
[2017-11-10] MEDS: TEMAZEPAM 15 MG CAP PO PRN (22:29)
[2017-11-10] MEDS: ATORVASTATIN 20 MG TAB PO SCH (22:30)
[2017-11-10] MEDS: CITALOPRAM HYDROBR 20 MG TAB PO SCH (22:30)
[2017-11-10] MEDS: AMOXICILLIN/CLAVUL 875 MG TAB PO SCH (22:30)
[2017-11-11] MEDS: KETOROLAC TROMETH 30 MG/ML 1ML VIAL IV PRN ×4 (00:26→21:10)
[2017-11-11 05:05] VITALS: BP 104/67
[2017-11-11 05:38] LABS: Basophils # (auto) 0.1 uL; Basophils % (auto) 0.8 % (0.0-2.0); Eosinophils # (auto) 0.2 uL; Eosinophils % (auto) 3.2 % (0.0-7.0); Hematocrit 40.8 % (41.0-53.0); Hemoglobin 13.9 g/dL (13.5-17.5); Lymphocytes # (auto) 2.6 uL; Lymphocytes % (auto) 35.2 % (10.0-50.0); Mean Corpuscular Hemoglobin 32.4 pg (28.0-32.0); Mean Corpuscular Hgb Conc. 34.1 g/dL (32.0-36.0); Mean Corpuscular Volume 95.1 fL (80.0-100.0); Monocytes # (auto) 0.7 uL; Neutrophils # (auto) 3.7 uL; Neutrophils % (auto) 50.8 % (37.0-80.0); Nucleated Red Blood Cells % 0.1 %; Platelet Count (auto) 254 10^3/uL (140-450); Red Blood Cells 4.29 10^6/uL (4.5-5.90); Red Cell Distribution Width 15.4 % (11.8-14.3); White Blood Cell 7.3 10^3/uL (4.4-10.8)
[2017-11-11 05:49] LABS: BUN/Creatinine Ratio 23.5; Calcium 8.6 mg/dL (8.5-10.1); Potassium 4.7 mmol/L (3.5-5.1)
[2017-11-11] MEDS: buPROPion HCL 100 MG TAB PO SCH ×2 (06:55→18:16)
[2017-11-11 08:20] VITALS: BP 104/71
[2017-11-11 09:22] VITALS: BP 104/71
[2017-11-11] MEDS: FAMOTIDINE 20 MG TAB PO SCH ×2 (10:00→22:28)
[2017-11-11] MEDS: ISOSORBIDE MONONITRATE 60 MG TAB PO SCH (10:00)
[2017-11-11] MEDS: CARVEDILOL 3.125 MG TAB PO SCH ×2 (10:00→22:00)
[2017-11-11] MEDS: LISINOPRIL 5 MG TAB PO SCH ×2 (10:00→22:00)
[2017-11-11] MEDS: NITROGLYCERIN 0.2MG/HR TOPICAL PATCH TD SCH (10:00)
[2017-11-11] MEDS: FUROSEMIDE 40 MG TAB PO SCH ×2 (10:01→22:31)
[2017-11-11] MEDS: ASPirin-EC 325mg tab PO SCH (10:01)
[2017-11-11] MEDS: AMOXICILLIN/CLAVUL 875 MG TAB PO SCH ×2 (10:01→22:29)
[2017-11-11] MEDS: CLOPIDOGREL BISULFATE 75 MG TAB PO SCH (10:01)
[2017-11-11] MEDS: POTASSIUM CHLORIDE 8 MEQ TAB PO SCH ×2 (10:06→22:27)
[2017-11-11] MEDS: SPIRONOLACTONE 25 MG TAB PO SCH ×2 (10:06→22:30)
[2017-11-11] MEDS: traMADol HCL 50 MG TAB PO PRN ×2 (10:07→18:17)
[2017-11-11 13:00] VITALS: BP 99/71
[2017-11-11 17:00] VITALS: BP 92/58
[2017-11-11 22:00] VITALS: BP 115/70
[2017-11-11] MEDS: ATORVASTATIN 20 MG TAB PO SCH (22:26)
[2017-11-11] MEDS: LORazepam 0.5 MG TAB PO PRN (22:28)
[2017-11-11] MEDS: CITALOPRAM HYDROBR 20 MG TAB PO SCH (22:29)
[2017-11-11] MEDS: TEMAZEPAM 15 MG CAP PO PRN (22:36)
[2017-11-11] MEDS: HYDROcodone-ACET 10/325MG TAB PO PRN (22:56)
[2017-11-12 05:00] VITALS: BP 105/73
[2017-11-12] MEDS: buPROPion HCL 100 MG TAB PO SCH (06:56)
[2017-11-12] MEDS: KETOROLAC TROMETH 30 MG/ML 1ML VIAL IV PRN (08:35)
[2017-11-12] MEDS: HYDROcodone-ACET 10/325MG TAB PO PRN (08:37)
[2017-11-12 09:00] VITALS: BP 117/73
[2017-11-12] MEDS: FAMOTIDINE 20 MG TAB PO SCH (09:24)
[2017-11-12] MEDS: AMOXICILLIN/CLAVUL 875 MG TAB PO SCH (09:25)
[2017-11-12] MEDS: POTASSIUM CHLORIDE 8 MEQ TAB PO SCH (09:25)
[2017-11-12] MEDS: CLOPIDOGREL BISULFATE 75 MG TAB PO SCH (09:25)
[2017-11-12] MEDS: ASPirin-EC 325mg tab PO SCH (09:26)
[2017-11-12] MEDS: CARVEDILOL 3.125 MG TAB PO SCH (09:26)
[2017-11-12] MEDS: FUROSEMIDE 40 MG TAB PO SCH (09:27)
[2017-11-12] MEDS: ISOSORBIDE MONONITRATE 60 MG TAB PO SCH (09:29)
[2017-11-12] MEDS: SPIRONOLACTONE 25 MG TAB PO SCH (09:30)
[2017-11-12] MEDS: LISINOPRIL 5 MG TAB PO SCH (09:31)
[2017-11-12] MEDS: NITROGLYCERIN 0.2MG/HR TOPICAL PATCH TD SCH (09:31)
[2017-11-12 11:35] VITALS: BP_DIAS 73
[2017-11-12 12:34] VITALS: BP 100/51
== END 2017-11-12 12:50 | disposition home or self-care (01) | DRG 175 ==
LOC: ER 09:38 → EDBD 09:38 → TELE 09:39 → TELE-WESTW 16:47
PROVIDERS: ADMIT Internal Medicine; ATTEND Internal Medicine
PROC: 4A023N7 Measurement of Cardiac Sampling and Pressure, Left Heart, Percutaneous Approach (ICD-10-PCS; principal; 2017-11-07)
PROC: 02703ZZ Dilation of Coronary Artery, One Artery, Percutaneous Approach (ICD-10-PCS; 2017-11-07)
PROC: B2111ZZ Fluoroscopy of Multiple Coronary Arteries using Low Osmolar Contrast (ICD-10-PCS; 2017-11-07)
PROC: B2181ZZ Fluoroscopy of Left Internal Mammary Bypass Graft using Low Osmolar Contrast (ICD-10-PCS; 2017-11-07)
PROC: B2131ZZ Fluoroscopy of Multiple Coronary Artery Bypass Grafts using Low Osmolar Contrast (ICD-10-PCS; 2017-11-07)
DX: I25.718 Atherosclerosis of autologous vein coronary artery bypass graft(s) with other forms of angina pectoris (principal); I50.41 Acute combined systolic (congestive) and diastolic (congestive) heart failure; I42.0 Dilated cardiomyopathy; E87.8 Other disorders of electrolyte and fluid balance, not elsewhere classified; E66.01 Morbid (severe) obesity due to excess calories; I11.0 Hypertensive heart disease with heart failure; E11.9 Type 2 diabetes mellitus without complications; E78.5 Hyperlipidemia, unspecified; K04.7 Periapical abscess without sinus; K05.10 Chronic gingivitis, plaque induced; K21.9 Gastro-esophageal reflux disease without esophagitis; Z80.1 Family history of malignant neoplasm of trachea, bronchus and lung; Z82.5 Family history of asthma and other chronic lower respiratory diseases; Z91.041 Radiographic dye allergy status; Z82.3 Family history of stroke; Z82.49 Family history of ischemic heart disease and other diseases of the circulatory system; Z83.3 Family history of diabetes mellitus; Z86.73 Personal history of transient ischemic attack (TIA), and cerebral infarction without residual deficits; Z95.1 Presence of aortocoronary bypass graft; Z95.5 Presence of coronary angioplasty implant and graft; Z95.810 Presence of automatic (implantable) cardiac defibrillator; Z79.82 Long term (current) use of aspirin; Z79.899 Other long term (current) drug therapy; Z68.39 Body mass index [BMI] 39.0-39.9, adult
CPT/HCPCS: 36415; 71045; 80048; 80053; 82550; 84484; 85025; 85379; 85610; 85652; 85730; 87081; 92920; 93458; 94761; 96374; 96375; 99152; A6257; C1887; J1885; J2001; J2250; J2405; J3490

== ENCOUNTER 2017-11-13 10:07 | Inpatient (IN) | payer MEDICAID ==
[~2017-11-13] VITALS: Ht 175.3 cm; Wt 115.7 kg
[2017-11-13 11:03] LABS: Basophils # (auto) 0.1 uL; Basophils % (auto) 0.9 % (0.0-2.0); Eosinophils # (auto) 0.2 uL; Eosinophils % (auto) 3.2 % (0.0-7.0); Hematocrit 43.4 % (41.0-53.0); Hemoglobin 14.7 g/dL (13.5-17.5); Lymphocytes # (auto) 1.9 uL; Mean Corpuscular Hemoglobin 32.7 pg (28.0-32.0); Mean Corpuscular Volume 96.2 fL (80.0-100.0); Monocytes # (auto) 0.5 uL; Monocytes % (auto) 8.3 % (0.0-12.0); Neutrophils # (auto) 3.8 uL; Neutrophils % (auto) 58.6 % (37.0-80.0); Nucleated Red Blood Cells % 0.1 %; Platelet Count (auto) 291 10^3/uL (140-450); Red Blood Cells 4.51 10^6/uL (4.5-5.90); Red Cell Distribution Width 15.4 % (11.8-14.3); White Blood Cell 6.5 10^3/uL (4.4-10.8)
[2017-11-13 11:21] LABS: Albumin 3.8 g/dL (3.4-5.0); Bilirubin, Total 0.6 mg/dL (0.2-1.0); Calcium 8.9 mg/dL (8.5-10.1); Magnesium 3.3 mg/dL (1.6-2.6); Potassium 4.3 mmol/L (3.5-5.1); Total Protein 7.9 g/dL (6.4-8.2)
[2017-11-13] MEDS ORDERED: PROMETHAZINE HCL 25 MG/ML 1ML IV ONE (15:30)
[2017-11-13] MEDS ORDERED: ASPirin 81 mg TAB PO ONE (15:30)
[2017-11-13] MEDS ORDERED: MORPHINE SULF INJ 2 MG/ML SYRINGE 1ML IV ONE (15:30)
[2017-11-13] MEDS ORDERED: NITROGLYCERIN 0.4 MG SL TAB SL PRN (15:45)
[2017-11-13] MEDS ORDERED: MORPHINE SULF INJ 2 MG/ML SYRINGE 1ML IV PRN (15:45)
[2017-11-13] MEDS: POTASSIUM CHLORIDE 8 MEQ TAB PO SCH (18:00)
[2017-11-13] MEDS: FUROSEMIDE 40 MG TAB PO SCH (18:00)
[2017-11-13] MEDS: SPIRONOLACTONE 25 MG TAB PO SCH (19:03)
[2017-11-13 19:33] LABS: INR 1.01 (0.9-1.15); Partial Thromboplastin Time 25.3 sec (23.78-33.04); Prothrombin Time 10.8 sec (9.27-12.13)
[2017-11-13] MEDS: FAMOTIDINE 20 MG TAB PO SCH (21:59)
[2017-11-13 22:00] VITALS: BP 101/58
[2017-11-13] MEDS ORDERED: ATORVASTATIN 20 MG TAB PO SCH (22:00)
[2017-11-13] MEDS: SODIUM CHLOR 0.9% PF (SALINE LOCK) 10ML VIAL/SYR IV SCH (22:01)
[2017-11-13] MEDS: CARVEDILOL 3.125 MG TAB PO SCH (22:01)
[2017-11-14 05:47] VITALS: BP 119/74
[2017-11-14] MEDS: SPIRONOLACTONE 25 MG TAB PO SCH ×2 (06:24→18:00)
[2017-11-14] MEDS: FUROSEMIDE 40 MG TAB PO SCH ×2 (06:25→18:00)
[2017-11-14] MEDS: POTASSIUM CHLORIDE 8 MEQ TAB PO SCH ×2 (06:25→18:00)
[2017-11-14] MEDS: SODIUM CHLOR 0.9% PF (SALINE LOCK) 10ML VIAL/SYR IV SCH ×2 (06:26→14:10)
[2017-11-14 08:24] VITALS: BP 110/72
[2017-11-14] MEDS: CARVEDILOL 3.125 MG TAB PO SCH (09:36)
[2017-11-14] MEDS: FAMOTIDINE 20 MG TAB PO SCH (09:37)
[2017-11-14] MEDS ORDERED: ISOSORBIDE MONONITRATE 60 MG TAB PO SCH (10:00)
[2017-11-14] MEDS ORDERED: ASPirin-EC 325mg tab PO SCH (10:00)
[2017-11-14] MEDS ORDERED: LISINOPRIL 5 MG TAB PO SCH (10:00)
[2017-11-14] MEDS ORDERED: CITALOPRAM HYDROBR 20 MG TAB PO SCH (10:00)
[2017-11-14] MEDS ORDERED: ENOXAPARIN SOD 40 MG/0.4 ML SYRINGE SC SCH (10:00)
[2017-11-14] MEDS ORDERED: CLOPIDOGREL BISULFATE 75 MG TAB PO SCH (10:00)
[2017-11-14 12:03] VITALS: BP 100/69
[2017-11-14 13:35] VITALS: BP 100/69
== END 2017-11-14 17:20 | disposition home or self-care (01) | DRG 198 ==
LOC: EDBD 10:07 → ER 10:07 → TELE 10:08 → TELE-EAST 17:50
PROVIDERS: ADMIT Internal Medicine; ATTEND Internal Medicine
DX: I25.10 Atherosclerotic heart disease of native coronary artery without angina pectoris (principal); E66.01 Morbid (severe) obesity due to excess calories; I13.0 Hypertensive heart and chronic kidney disease with heart failure and stage 1 through stage 4 chronic kidney disease, or unspecified chronic kidney disease; I50.9 Heart failure, unspecified; N18.3 Chronic kidney disease, stage 3 (moderate); K21.9 Gastro-esophageal reflux disease without esophagitis; E78.5 Hyperlipidemia, unspecified; Z68.37 Body mass index [BMI] 37.0-37.9, adult; Z91.041 Radiographic dye allergy status; Z80.1 Family history of malignant neoplasm of trachea, bronchus and lung; Z82.3 Family history of stroke; Z82.49 Family history of ischemic heart disease and other diseases of the circulatory system; Z82.5 Family history of asthma and other chronic lower respiratory diseases; Z83.3 Family history of diabetes mellitus; Z86.73 Personal history of transient ischemic attack (TIA), and cerebral infarction without residual deficits; Z95.1 Presence of aortocoronary bypass graft; Z95.5 Presence of coronary angioplasty implant and graft; Z95.810 Presence of automatic (implantable) cardiac defibrillator; I25.2 Old myocardial infarction
CPT/HCPCS: 36415; 71046; 80053; 82550; 83735; 83880; 84443; 84484; 85025; 85379; 85610; 85652; 85730; 86141; 87081; 94761; 96374; 96375

== ENCOUNTER 2017-11-27 12:19 | Inpatient (IN) | payer MEDICAID ==
[~2017-11-27] VITALS: Ht 175.3 cm; Wt 116.9 kg
[~2017-11-27 12:19] MED LIST changes: +SPIR25TA8 PO; -SPIR25TA89 PO
[2017-11-27] MEDS ORDERED: ONDANSETRON HCL 4 MG/2 ML VIAL IV ONE (13:15)
[2017-11-27] MEDS ORDERED: MORPHINE SULF INJ 2 MG/ML SYRINGE 1ML IV ONE (13:15)
[2017-11-27] MEDS ORDERED: MORPHINE SULF INJ 2 MG/ML SYRINGE 1ML ONE (13:19)
[2017-11-27] MEDS ORDERED: ONDANSETRON HCL 4 MG/2 ML VIAL ONE (13:19)
[2017-11-27] MEDS ORDERED: BUP75T PO (13:44)
[2017-11-27 14:05] LABS: Basophils # (auto) 0.1 uL; Basophils % (auto) 0.9 % (0.0-2.0); Eosinophils # (auto) 0.3 uL; Eosinophils % (auto) 3.7 % (0.0-7.0); Hematocrit 42.3 % (41.0-53.0); Hemoglobin 14.5 g/dL (13.5-17.5); Lymphocytes # (auto) 1.8 uL; Lymphocytes % (auto) 25.1 % (10.0-50.0); Mean Corpuscular Hemoglobin 33.2 pg (28.0-32.0); Mean Corpuscular Hgb Conc. 34.2 g/dL (32.0-36.0); Monocytes # (auto) 0.9 uL; Monocytes % (auto) 12.5 % (0.0-12.0); Neutrophils # (auto) 4.1 uL; Neutrophils % (auto) 57.8 % (37.0-80.0); Nucleated Red Blood Cells % 0.1 %; Platelet Count (auto) 287 10^3/uL (140-450); Red Blood Cells 4.36 10^6/uL (4.5-5.90); Red Cell Distribution Width 14.9 % (11.8-14.3); White Blood Cell 7.1 10^3/uL (4.4-10.8)
[2017-11-27 14:19] LABS: INR 1.01 (0.9-1.15); Partial Thromboplastin Time 25.5 sec (23.78-33.04); Prothrombin Time 10.8 sec (9.27-12.13)
[2017-11-27 14:28] LABS: Albumin 3.7 g/dL (3.4-5.0); BUN/Creatinine Ratio 21.7; Bilirubin, Total 0.5 mg/dL (0.2-1.0); Calcium 9.1 mg/dL (8.5-10.1); Potassium 4.5 mmol/L (3.5-5.1); Total Protein 7.5 g/dL (6.4-8.2)
[2017-11-27] MEDS ORDERED: MORPHINE SULFATE 4 MG/ML SYR/VIAL IV PRN (15:30)
[2017-11-27] MEDS ORDERED: ALUM & MAG HYDROX-SIMETH LIQ(MAALOX) 30 ML PO ONE (15:30)
[2017-11-27] MEDS ORDERED: ONDANSETRON HCL 4 MG/2 ML VIAL IV PRN (15:30)
[2017-11-27] MEDS ORDERED: ZOLPIDEM TARTRATE 5 MG TAB PO PRN (15:30)
[2017-11-27] MEDS ORDERED: LORazepam 0.5 MG TAB PO PRN (15:30)
[2017-11-27] MEDS ORDERED: NITROGLYCERIN 0.4 MG SL TAB SL PRN ×2 (15:30)
[2017-11-27] MEDS: AMPICILLIN 500 MG CAP PO SCH ×2 (17:00→21:27)
[2017-11-27] MEDS: SPIRONOLACTONE 25 MG TAB PO SCH (18:07)
[2017-11-27] MEDS: MORPHINE SULF INJ 2 MG/ML SYRINGE 1ML IV PRN (19:45)
[2017-11-27 20:43] VITALS: BP 102/71
[2017-11-27] MEDS: POTASSIUM CHLORIDE 8 MEQ TAB PO SCH (21:27)
[2017-11-27] MEDS: ATORVASTATIN 20 MG TAB PO SCH (21:27)
[2017-11-27] MEDS: FAMOTIDINE 20 MG TAB PO SCH (21:27)
[2017-11-27] MEDS: CARVEDILOL 3.125 MG TAB PO SCH (21:28)
[2017-11-27] MEDS: ENALAPRIL MALEATE 2.5 MG TAB PO SCH (21:29)
[2017-11-27] MEDS: SODIUM CHLOR 0.9% PF (SALINE LOCK) 10ML VIAL/SYR IV SCH (21:45)
[2017-11-27] MEDS: ACETAMINOPHEN 325 MG TAB PO PRN (21:45)
[2017-11-27 22:00] VITALS: BP 102/71
[2017-11-28] MEDS: AMPICILLIN 500 MG CAP PO SCH ×2 (04:34→10:59)
[2017-11-28 05:52] VITALS: BP 111/57
[2017-11-28] MEDS: SPIRONOLACTONE 25 MG TAB PO SCH ×2 (06:05→18:36)
[2017-11-28] MEDS: SODIUM CHLOR 0.9% PF (SALINE LOCK) 10ML VIAL/SYR IV SCH ×3 (06:05→22:26)
[2017-11-28] MEDS: ACETAMINOPHEN 325 MG TAB PO PRN (06:06)
[2017-11-28 07:17] LABS: Basophils # (auto) 0.1 uL; Basophils % (auto) 0.9 % (0.0-2.0); Eosinophils # (auto) 0.4 uL; Eosinophils % (auto) 5.1 % (0.0-7.0); Hematocrit 39.3 % (41.0-53.0); Hemoglobin 13.2 g/dL (13.5-17.5); Lymphocytes # (auto) 2.2 uL; Lymphocytes % (auto) 32.8 % (10.0-50.0); Mean Corpuscular Hemoglobin 32.9 pg (28.0-32.0); Mean Corpuscular Hgb Conc. 33.6 g/dL (32.0-36.0); Mean Corpuscular Volume 97.8 fL (80.0-100.0); Monocytes # (auto) 0.8 uL; Monocytes % (auto) 11.1 % (0.0-12.0); Neutrophils # (auto) 3.4 uL; Neutrophils % (auto) 50.1 % (37.0-80.0); Platelet Count (auto) 243 10^3/uL (140-450); Red Blood Cells 4.01 10^6/uL (4.5-5.90); Red Cell Distribution Width 14.6 % (11.8-14.3); White Blood Cell 6.8 10^3/uL (4.4-10.8)
[2017-11-28 07:45] LABS: Albumin 3.3 g/dL (3.4-5.0); BUN/Creatinine Ratio 28.3; Bilirubin, Total 0.6 mg/dL (0.2-1.0); Calcium 8.5 mg/dL (8.5-10.1); Magnesium 2.3 mg/dL (1.6-2.6); Potassium 4.5 mmol/L (3.5-5.1); Total Protein 6.8 g/dL (6.4-8.2)
[2017-11-28 08:00] VITALS: BP 97/66
[2017-11-28 09:39] VITALS: BP 97/66
[2017-11-28] MEDS: ISOSORBIDE MONONITRATE 60 MG TAB PO SCH (10:00)
[2017-11-28] MEDS: ENALAPRIL MALEATE 2.5 MG TAB PO SCH ×2 (10:00→22:00)
[2017-11-28] MEDS: DOCUSATE SOD 100 MG CAP PO SCH (10:00)
[2017-11-28] MEDS: CARVEDILOL 3.125 MG TAB PO SCH ×2 (10:00→22:00)
[2017-11-28] MEDS: buPROPion HCL 75 MG TAB PO SCH (10:57)
[2017-11-28] MEDS: FAMOTIDINE 20 MG TAB PO SCH ×2 (10:58→22:27)
[2017-11-28] MEDS: POTASSIUM CHLORIDE 8 MEQ TAB PO SCH ×2 (10:58→22:26)
[2017-11-28] MEDS: CLOPIDOGREL BISULFATE 75 MG TAB PO SCH (10:58)
[2017-11-28] MEDS: ASPirin 81 mg TAB PO SCH (10:58)
[2017-11-28] MEDS: CITALOPRAM HYDROBR 20 MG TAB PO SCH (10:58)
[2017-11-28] MEDS: FUROSEMIDE 40 MG TAB PO SCH (11:00)
[2017-11-28 13:04] VITALS: BP 90/72
[2017-11-28] MEDS: CEPHALEXIN 250 MG CAP PO SCH ×3 (15:11→23:55)
[2017-11-28 17:41] VITALS: BP 111/79
[2017-11-28] MEDS ORDERED: HYDROcodone-ACET 5/325MG TAB PO PRN (18:45)
[2017-11-28 21:30] VITALS: BP 104/54
[2017-11-28] MEDS: ATORVASTATIN 20 MG TAB PO SCH (22:26)
[2017-11-29 05:00] VITALS: BP 92/55
[2017-11-29] MEDS: SPIRONOLACTONE 25 MG TAB PO SCH ×2 (06:00→18:00)
[2017-11-29] MEDS: SODIUM CHLOR 0.9% PF (SALINE LOCK) 10ML VIAL/SYR IV SCH ×2 (06:29→14:00)
[2017-11-29] MEDS: CEPHALEXIN 250 MG CAP PO SCH ×2 (06:43→15:26)
[2017-11-29 07:50] VITALS: BP 121/72
[2017-11-29 09:00] VITALS: BP 121/72
[2017-11-29] MEDS: DOCUSATE SOD 100 MG CAP PO SCH (10:00)
[2017-11-29] MEDS: CITALOPRAM HYDROBR 20 MG TAB PO SCH (11:32)
[2017-11-29] MEDS: ENALAPRIL MALEATE 2.5 MG TAB PO SCH (11:32)
[2017-11-29] MEDS: FAMOTIDINE 20 MG TAB PO SCH (11:32)
[2017-11-29] MEDS: buPROPion HCL 75 MG TAB PO SCH (11:32)
[2017-11-29] MEDS: CARVEDILOL 3.125 MG TAB PO SCH (11:33)
[2017-11-29] MEDS: FUROSEMIDE 40 MG TAB PO SCH (11:33)
[2017-11-29] MEDS: ASPirin 81 mg TAB PO SCH (11:33)
[2017-11-29] MEDS: CLOPIDOGREL BISULFATE 75 MG TAB PO SCH (11:33)
[2017-11-29] MEDS: POTASSIUM CHLORIDE 8 MEQ TAB PO SCH (11:34)
[2017-11-29] MEDS: ISOSORBIDE MONONITRATE 60 MG TAB PO SCH (11:34)
[2017-11-29] MEDS: MORPHINE SULF INJ 2 MG/ML SYRINGE 1ML IV PRN (12:31)
[2017-11-29 13:00] VITALS: BP 124/84
[2017-11-29 17:00] VITALS: BP 100/63
== END 2017-11-29 17:30 | disposition home or self-care (01) | DRG 198 ==
LOC: ER 12:19 → EDBD 12:19 → TELE 12:20 → TELE-CENTR 20:10
PROVIDERS: ADMIT Internal Medicine; ATTEND Internal Medicine
DX: I25.118 Atherosclerotic heart disease of native coronary artery with other forms of angina pectoris (principal); I50.43 Acute on chronic combined systolic (congestive) and diastolic (congestive) heart failure; E11.22 Type 2 diabetes mellitus with diabetic chronic kidney disease; I42.9 Cardiomyopathy, unspecified; E66.01 Morbid (severe) obesity due to excess calories; I13.0 Hypertensive heart and chronic kidney disease with heart failure and stage 1 through stage 4 chronic kidney disease, or unspecified chronic kidney disease; I50.9 Heart failure, unspecified; N18.3 Chronic kidney disease, stage 3 (moderate); E78.5 Hyperlipidemia, unspecified; F41.9 Anxiety disorder, unspecified; K21.9 Gastro-esophageal reflux disease without esophagitis; Z80.1 Family history of malignant neoplasm of trachea, bronchus and lung; Z82.3 Family history of stroke; Z82.49 Family history of ischemic heart disease and other diseases of the circulatory system; Z82.5 Family history of asthma and other chronic lower respiratory diseases; Z83.3 Family history of diabetes mellitus; Z91.14 Patient's other noncompliance with medication regimen; I25.2 Old myocardial infarction; Z95.1 Presence of aortocoronary bypass graft; Z95.5 Presence of coronary angioplasty implant and graft; Z95.810 Presence of automatic (implantable) cardiac defibrillator; Z83.49 Family history of other endocrine, nutritional and metabolic diseases; Z91.041 Radiographic dye allergy status; Z79.899 Other long term (current) drug therapy; Z79.82 Long term (current) use of aspirin; Z68.38 Body mass index [BMI] 38.0-38.9, adult
CPT/HCPCS: 36415; 71045; 80053; 80061; 83735; 83880; 84443; 84484; 85025; 85379; 85610; 85730; 87081; 93005; 94761; 96374; 96375; J2405

== ENCOUNTER 2017-12-11 17:05 | Inpatient (IN) | payer MEDICAID ==
[~2017-12-11] VITALS: Ht 175.3 cm; Wt 129.2 kg
[~2017-12-11 17:05] MED LIST changes: +BUP75T PO
[2017-12-11 18:18] LABS: Basophils # (auto) 0.1 uL; Basophils % (auto) 0.8 % (0.0-2.0); Eosinophils # (auto) 0.2 uL; Eosinophils % (auto) 4.1 % (0.0-7.0); Hematocrit 40.8 % (41.0-53.0); Lymphocytes # (auto) 1.1 uL; Lymphocytes % (auto) 18.6 % (10.0-50.0); Mean Corpuscular Hemoglobin 33.8 pg (28.0-32.0); Mean Corpuscular Hgb Conc. 34.4 g/dL (32.0-36.0); Mean Corpuscular Volume 98.1 fL (80.0-100.0); Monocytes # (auto) 0.8 uL; Monocytes % (auto) 13.6 % (0.0-12.0); Neutrophils # (auto) 3.8 uL; Neutrophils % (auto) 62.9 % (37.0-80.0); Platelet Count (auto) 283 10^3/uL (140-450); Red Blood Cells 4.16 10^6/uL (4.5-5.90); White Blood Cell 6.1 10^3/uL (4.4-10.8)
[2017-12-11 18:36] LABS: Albumin 3.2 g/dL (3.4-5.0); Anion Gap 10 (5-15); Blood Urea Nitrogen 20 mg/dL (7-18); Calcium 8.1 mg/dL (8.5-10.1); Carbon Dioxide 24 mmol/L (21-32); Chloride 109 mmol/L (98-107); Sodium 143 mmol/L (136-145)
[2017-12-11 18:39] LABS: Alanine Aminotransferase 23 U/L (16-61); Aspartate Aminotransferase 16 U/L (15-37); BUN/Creatinine Ratio 13.9; GFR African American 64 mL/min; GFR Non-African American 53 mL/min; Glucose 104 mg/dL (74-106)
[2017-12-11 18:44] LABS: Alkaline Phosphatase 67 U/L (45-117); Bilirubin, Total 0.4 mg/dL (0.2-1.0)
[2017-12-11] MEDS ORDERED: PANTOPRAZOLE 40 MG/10 ML VIAL IV ONE (20:45)
[2017-12-11 21:10] LABS: INR 1.04 (0.9-1.15); Partial Thromboplastin Time 26.8 sec (23.78-33.04); Prothrombin Time 11.1 sec (9.27-12.13)
[2017-12-11] MEDS ORDERED: MORPHINE SULF INJ 2 MG/ML SYRINGE 1ML IV ONE (22:00)
[2017-12-11] MEDS ORDERED: ONDANSETRON HCL 4 MG/2 ML VIAL IV ONE (22:00)
[2017-12-11] MEDS ORDERED: NITROGLYCERIN 0.4 MG SL TAB SL PRN (22:30)
[2017-12-11] MEDS ORDERED: ONDANSETRON HCL 4 MG/2 ML VIAL IV PRN (22:30)
[2017-12-11] MEDS ORDERED: ACETAMINOPHEN 325 MG TAB PO PRN (22:30)
[2017-12-11 23:21] VITALS: BP 107/71
[2017-12-11 23:22] LABS: Hematocrit 40.2 % (41.0-53.0); Hemoglobin 13.4 g/dL (13.5-17.5)
[2017-12-11 23:30] VITALS: BP 107/71
[2017-12-12] MEDS: TEMAZEPAM 15 MG CAP PO PRN ×2 (00:09→21:16)
[2017-12-12 05:00] VITALS: BP 118/69
[2017-12-12] MEDS: SPIRONOLACTONE 25 MG TAB PO SCH ×2 (05:59→18:00)
[2017-12-12] MEDS: FUROSEMIDE 40 MG TAB PO SCH ×2 (05:59→18:00)
[2017-12-12 07:33] LABS: Basophils # (auto) 0 uL; Basophils % (auto) 0.6 % (0.0-2.0); Eosinophils # (auto) 0.3 uL; Eosinophils % (auto) 5.2 % (0.0-7.0); Hematocrit 38.8 % (41.0-53.0); Hemoglobin 13.2 g/dL (13.5-17.5); Lymphocytes # (auto) 1.1 uL; Mean Corpuscular Hemoglobin 33.3 pg (28.0-32.0); Mean Corpuscular Hgb Conc. 34.1 g/dL (32.0-36.0); Mean Corpuscular Volume 97.9 fL (80.0-100.0); Monocytes # (auto) 0.8 uL; Monocytes % (auto) 13.1 % (0.0-12.0); Neutrophils % (auto) 63.1 % (37.0-80.0); Platelet Count (auto) 226 10^3/uL (140-450); Red Blood Cells 3.97 10^6/uL (4.5-5.90); Red Cell Distribution Width 14.3 % (11.8-14.3); White Blood Cell 6.3 10^3/uL (4.4-10.8)
[2017-12-12 08:02] LABS: Anion Gap 7 (5-15); BUN/Creatinine Ratio 19.4; Blood Urea Nitrogen 19 mg/dL (7-18); Carbon Dioxide 23 mmol/L (21-32); Chloride 109 mmol/L (98-107); GFR African American 100 mL/min; GFR Non-African American 83 mL/min; Glucose 86 mg/dL (74-106); Potassium 3.7 mmol/L (3.5-5.1); Sodium 139 mmol/L (136-145)
[2017-12-12 08:03] LABS: Alanine Aminotransferase 22 U/L (16-61); Albumin 2.9 g/dL (3.4-5.0); Alkaline Phosphatase 62 U/L (45-117); Aspartate Aminotransferase 14 U/L (15-37); Bilirubin, Total 0.4 mg/dL (0.2-1.0); Calcium 8.2 mg/dL (8.5-10.1); Total Protein 6.5 g/dL (6.4-8.2)
[2017-12-12 09:00] VITALS: BP 106/71
[2017-12-12] MEDS: CARVEDILOL 3.125 MG TAB PO SCH ×2 (10:00→21:13)
[2017-12-12] MEDS: LISINOPRIL 5 MG TAB PO SCH ×2 (10:00→21:14)
[2017-12-12] MEDS: ISOSORBIDE MONONITRATE 60 MG TAB PO SCH (10:00)
[2017-12-12] MEDS: CLOPIDOGREL BISULFATE 75 MG TAB PO SCH (10:07)
[2017-12-12] MEDS: PANTOPRAZOLE 40 MG TAB PO SCH (10:07)
[2017-12-12] MEDS: POTASSIUM CHLORIDE 8 MEQ TAB PO SCH ×2 (10:07→21:13)
[2017-12-12] MEDS: buPROPion HCL 75 MG TAB PO SCH (10:08)
[2017-12-12] MEDS: ASPirin 81 mg TAB PO SCH (10:12)
[2017-12-12 13:00] VITALS: BP 93/63
[2017-12-12] MEDS: LORazepam 0.5 MG TAB PO PRN ×2 (13:28→21:16)
[2017-12-12 17:00] VITALS: BP 104/66
[2017-12-12] MEDS: MORPHINE SULF INJ 2 MG/ML SYRINGE 1ML IV PRN (18:45)
[2017-12-12] MEDS: ATORVASTATIN 20 MG TAB PO SCH (21:14)
[2017-12-12 22:00] VITALS: BP 110/69
[2017-12-13] VITALS (7 sets, daily range): BP systolic 93–119; BP diastolic 61–80
[2017-12-13] MEDS: MORPHINE SULF INJ 2 MG/ML SYRINGE 1ML IV PRN (00:01)
[2017-12-13 06:13] LABS: Basophils # (auto) 0.1 uL; Basophils % (auto) 1.1 % (0.0-2.0); Eosinophils # (auto) 0.4 uL; Eosinophils % (auto) 5.9 % (0.0-7.0); Hematocrit 36.9 % (41.0-53.0); Hemoglobin 12.8 g/dL (13.5-17.5); Lymphocytes # (auto) 1.2 uL; Lymphocytes % (auto) 20.6 % (10.0-50.0); Mean Corpuscular Hemoglobin 33.4 pg (28.0-32.0); Mean Corpuscular Hgb Conc. 34.6 g/dL (32.0-36.0); Mean Corpuscular Volume 96.5 fL (80.0-100.0); Monocytes # (auto) 0.8 uL; Monocytes % (auto) 13.2 % (0.0-12.0); Neutrophils # (auto) 3.6 uL; Neutrophils % (auto) 59.2 % (37.0-80.0); Nucleated Red Blood Cells % 0.2 %; Platelet Count (auto) 226 10^3/uL (140-450); Red Blood Cells 3.82 10^6/uL (4.5-5.90); Red Cell Distribution Width 13.9 % (11.8-14.3)
[2017-12-13] MEDS: LORazepam 0.5 MG TAB PO PRN ×2 (06:17→20:36)
[2017-12-13] MEDS: FUROSEMIDE 40 MG TAB PO SCH ×2 (06:17→16:51)
[2017-12-13] MEDS: SPIRONOLACTONE 25 MG TAB PO SCH ×2 (06:17→17:36)
[2017-12-13 06:27] LABS: Calcium 8.2 mg/dL (8.5-10.1); Potassium 3.7 mmol/L (3.5-5.1)
[2017-12-13] MEDS: ASPirin 81 mg TAB PO SCH (10:00)
[2017-12-13] MEDS: CLOPIDOGREL BISULFATE 75 MG TAB PO SCH (10:00)
[2017-12-13] MEDS: ISOSORBIDE MONONITRATE 60 MG TAB PO SCH (10:00)
[2017-12-13] MEDS: CARVEDILOL 3.125 MG TAB PO SCH ×2 (10:00→22:00)
[2017-12-13] MEDS: LISINOPRIL 5 MG TAB PO SCH ×2 (10:00→22:00)
[2017-12-13] MEDS ORDERED: SODIUM CHLORIDE LOCK 10 ML ONE (10:47)
[2017-12-13] MEDS ORDERED: LIDOCAINE VISCOUS 2% 15ML UD ONE (10:47)
[2017-12-13] MEDS ORDERED: diphenhdrAMINE HCL 50 MG/1 ML VL ONE (10:49)
[2017-12-13] MEDS: buPROPion HCL 75 MG TAB PO SCH (10:53)
[2017-12-13] MEDS: POTASSIUM CHLORIDE 8 MEQ TAB PO SCH ×2 (10:53→21:26)
[2017-12-13] MEDS: PANTOPRAZOLE 40 MG TAB PO SCH (10:53)
[2017-12-13] MEDS: HYDROcodone-ACET 5/325MG TAB PO PRN ×3 (10:53→21:34)
[2017-12-13 11:02] LABS: Urine WBC None Seen /hpf (0 - 3)
[2017-12-13 11:18] LABS: Urine Bacteria NONE SEEN /hpf (None Seen); Urine Blood Negative /uL (Negative); Urine Mucus FEW (None Seen); Urine Specific Gravity 1.012 (1.001-1.035)
[2017-12-13 11:27] LABS: Alcohol, Urine < 3.0 mg/dL (0-5); Amphetamine Screen, Urine NEGATIVE (NEGATIVE); Barbiturate Scree,Urine NEGATIVE (NEGATIVE); Benzodiazephine Screen, Urine NEGATIVE (NEGATIVE); Cannabinoid Screen, Urine NEGATIVE (NEGATIVE); Cocaine Screen, Urine NEGATIVE (NEGATIVE); Opiate Scree,Urine NEGATIVE (NEGATIVE); Phencyclidine Screen, Urine NEGATIVE (NEGATIVE)
[2017-12-13] MEDS ORDERED: LORazepam 2MG/ML-1ML VIAL IM ONE (14:00)
[2017-12-13] MEDS ORDERED: LORazepam 2MG/ML-1ML VIAL ONE (14:02)
[2017-12-13] MEDS: fentaNYL CITRATE 100 MCG/2 ML VL ONE ×3 (14:53→14:59)
[2017-12-13] MEDS: MIDAZOLAM HCL 5 MG/ML-1ML VIAL ONE ×3 (14:53→14:59)
[2017-12-13] MEDS ORDERED: MORPHINE SULFATE 4 MG/ML SYR/VIAL IV PRN (16:45)
[2017-12-13] MEDS: SUCRALFATE 1 GM/10 ML ORAL SUSP PO SCH ×2 (17:36→21:26)
[2017-12-13] MEDS: TEMAZEPAM 15 MG CAP PO PRN (21:25)
[2017-12-13] MEDS: ATORVASTATIN 20 MG TAB PO SCH (21:25)
[2017-12-14] MEDS: HYDROcodone-ACET 5/325MG TAB PO PRN ×2 (03:35→09:11)
[2017-12-14 04:58] VITALS: BP 104/88
[2017-12-14] MEDS: FUROSEMIDE 40 MG TAB PO SCH (06:00)
[2017-12-14] MEDS: SPIRONOLACTONE 25 MG TAB PO SCH (06:00)
[2017-12-14 06:14] LABS: Basophils # (auto) 0.1 uL; Basophils % (auto) 0.9 % (0.0-2.0); Eosinophils # (auto) 0.4 uL; Eosinophils % (auto) 5.3 % (0.0-7.0); Hematocrit 37.3 % (41.0-53.0); Hemoglobin 13.1 g/dL (13.5-17.5); Lymphocytes # (auto) 1.3 uL; Mean Corpuscular Hemoglobin 33.9 pg (28.0-32.0); Mean Corpuscular Hgb Conc. 35.2 g/dL (32.0-36.0); Mean Corpuscular Volume 96.4 fL (80.0-100.0); Monocytes # (auto) 0.8 uL; Monocytes % (auto) 10.7 % (0.0-12.0); Neutrophils # (auto) 4.8 uL; Neutrophils % (auto) 65.1 % (37.0-80.0); Platelet Count (auto) 229 10^3/uL (140-450); Red Blood Cells 3.87 10^6/uL (4.5-5.90); Red Cell Distribution Width 13.7 % (11.8-14.3); White Blood Cell 7.3 10^3/uL (4.4-10.8)
[2017-12-14] MEDS: SUCRALFATE 1 GM/10 ML ORAL SUSP PO SCH ×2 (06:22→12:11)
[2017-12-14 08:44] VITALS: BP 103/68
[2017-12-14] MEDS: LORazepam 0.5 MG TAB PO PRN (09:11)
[2017-12-14] MEDS: CARVEDILOL 3.125 MG TAB PO SCH (10:00)
[2017-12-14] MEDS: LISINOPRIL 5 MG TAB PO SCH (10:00)
[2017-12-14] MEDS: ISOSORBIDE MONONITRATE 60 MG TAB PO SCH (10:00)
[2017-12-14] MEDS: ASPirin 81 mg TAB PO SCH (10:08)
[2017-12-14] MEDS: POTASSIUM CHLORIDE 8 MEQ TAB PO SCH (10:09)
[2017-12-14] MEDS: CLOPIDOGREL BISULFATE 75 MG TAB PO SCH (10:09)
[2017-12-14] MEDS: buPROPion HCL 75 MG TAB PO SCH (10:10)
[2017-12-14] MEDS: PANTOPRAZOLE 40 MG TAB PO SCH (10:10)
== END 2017-12-14 13:00 | disposition home or self-care (01) | DRG 241 ==
LOC: ER 17:05 → EDSEX 17:05 → EDBD 17:05 → TELE 17:06 → TELE-WESTW 23:10
PROVIDERS: ADMIT Nurse Practitioner; ATTEND Internal Medicine
PROC: 0DB68ZX Excision of Stomach, Via Natural or Artificial Opening Endoscopic, Diagnostic (ICD-10-PCS; 2017-12-13)
PROC: 0DB38ZX Excision of Lower Esophagus, Via Natural or Artificial Opening Endoscopic, Diagnostic (ICD-10-PCS; principal; 2017-12-13 14:48)
DX: K29.71 Gastritis, unspecified, with bleeding (principal); I21.9 Acute myocardial infarction, unspecified; I42.9 Cardiomyopathy, unspecified; I13.0 Hypertensive heart and chronic kidney disease with heart failure and stage 1 through stage 4 chronic kidney disease, or unspecified chronic kidney disease; E66.01 Morbid (severe) obesity due to excess calories; I08.3 Combined rheumatic disorders of mitral, aortic and tricuspid valves; I50.42 Chronic combined systolic (congestive) and diastolic (congestive) heart failure; K22.70 Barrett's esophagus without dysplasia; K25.4 Chronic or unspecified gastric ulcer with hemorrhage; K29.81 Duodenitis with bleeding; R07.89 Other chest pain; N18.3 Chronic kidney disease, stage 3 (moderate); I70.0 Atherosclerosis of aorta; E78.5 Hyperlipidemia, unspecified; F41.9 Anxiety disorder, unspecified; I25.10 Atherosclerotic heart disease of native coronary artery without angina pectoris; I25.2 Old myocardial infarction; K21.0 Gastro-esophageal reflux disease with esophagitis; K44.9 Diaphragmatic hernia without obstruction or gangrene; Z80.0 Family history of malignant neoplasm of digestive organs; Z80.1 Family history of malignant neoplasm of trachea, bronchus and lung; Z82.3 Family history of stroke; Z82.49 Family history of ischemic heart disease and other diseases of the circulatory system; Z82.5 Family history of asthma and other chronic lower respiratory diseases; Z83.3 Family history of diabetes mellitus; Z91.19 Patient's noncompliance with other medical treatment and regimen; Z95.1 Presence of aortocoronary bypass graft; Z95.810 Presence of automatic (implantable) cardiac defibrillator; Z91.041 Radiographic dye allergy status; Z79.82 Long term (current) use of aspirin; Z79.899 Other long term (current) drug therapy; Z84.89 Family history of other specified conditions; Z68.41 Body mass index [BMI] 40.0-44.9, adult
CPT/HCPCS: 36415; 43239; 71045; 80048; 80053; 80307; 81001; 83735; 83880; 84443; 84484; 85014; 85018; 85025; 85610; 85730; 86850; 86900; 86901; 87081; 93005; 94761; 96374; 96375; A6257; C9113; J2250; J2405

== ENCOUNTER 2017-12-23 17:07 | Inpatient (IN) | payer MEDICAID ==
[~2017-12-23] VITALS: Ht 175.3 cm; Wt 116.7 kg
[2017-12-23] MEDS ORDERED: ONDANSETRON HCL 4 MG/2 ML VIAL IV ONE (17:30)
[2017-12-23] MEDS ORDERED: MORPHINE SULFATE 4 MG/ML SYR/VIAL IV ONE (17:30)
[2017-12-23 18:15] LABS: Basophils # (auto) 0.2 uL; Basophils % (auto) 2.3 % (0.0-2.0); Eosinophils # (auto) 0.3 uL; Eosinophils % (auto) 3.4 % (0.0-7.0); Hematocrit 39.3 % (41.0-53.0); Hemoglobin 13.4 g/dL (13.5-17.5); Lymphocytes # (auto) 2.9 uL; Lymphocytes % (auto) 32.4 % (10.0-50.0); Mean Corpuscular Hgb Conc. 34.2 g/dL (32.0-36.0); Mean Corpuscular Volume 96.6 fL (80.0-100.0); Monocytes # (auto) 0.9 uL; Neutrophils # (auto) 4.7 uL; Neutrophils % (auto) 51.9 % (37.0-80.0); Nucleated Red Blood Cells % 0.1 %; Platelet Count (auto) 308 10^3/uL (140-450); Red Blood Cells 4.07 10^6/uL (4.5-5.90); Red Cell Distribution Width 13.7 % (11.8-14.3); White Blood Cell 9.1 10^3/uL (4.4-10.8)
[2017-12-23 18:17] LABS: Albumin 3.3 g/dL (3.4-5.0); BUN/Creatinine Ratio 23.1; Calcium 8.1 mg/dL (8.5-10.1); Magnesium 1.9 mg/dL (1.6-2.6); Potassium 3.9 mmol/L (3.5-5.1)
[2017-12-23 18:22] LABS: Bilirubin, Total 0.2 mg/dL (0.2-1.0); Total Protein 7.4 g/dL (6.4-8.2)
[2017-12-23 19:23] LABS: INR 1.05 (0.9-1.15); Partial Thromboplastin Time 25.8 sec (23.78-33.04); Prothrombin Time 11.2 sec (9.27-12.13)
[2017-12-24] VITALS (7 sets, daily range): BP systolic 95–114; BP diastolic 56–73
[2017-12-24] MEDS ORDERED: SODIUM CHLORIDE 0.9% 1,000 ML IV ONE (00:15)
[2017-12-24] MEDS ORDERED: ACETAMINOPHEN 500 MG TAB PO PRN (00:15)
[2017-12-24] MEDS ORDERED: ALPRAZolam 0.25 MG TAB PO PRN (00:15)
[2017-12-24] MEDS ORDERED: MORPHINE SULFATE 4 MG/ML SYR/VIAL IV PRN (00:15)
[2017-12-24] MEDS ORDERED: ONDANSETRON HCL 4 MG/2 ML VIAL IV PRN (00:15)
[2017-12-24] MEDS ORDERED: NITROGLYCERIN 0.4 MG SL TAB SL PRN (00:15)
[2017-12-24] MEDS: buPROPion HCL 75 MG TAB PO SCH ×2 (06:48→19:23)
[2017-12-24] MEDS: CARVEDILOL 12.5 MG TAB PO SCH ×2 (08:12→18:19)
[2017-12-24] MEDS: HYDROcodone-ACET 5/325MG TAB PO PRN ×2 (08:13→22:14)
[2017-12-24 08:34] LABS: Basophils # (auto) 0.1 uL; Eosinophils # (auto) 0.3 uL; Eosinophils % (auto) 4.2 % (0.0-7.0); Hematocrit 38.2 % (41.0-53.0); Hemoglobin 13.1 g/dL (13.5-17.5); Lymphocytes # (auto) 1.8 uL; Lymphocytes % (auto) 28.6 % (10.0-50.0); Mean Corpuscular Hemoglobin 33.1 pg (28.0-32.0); Mean Corpuscular Hgb Conc. 34.4 g/dL (32.0-36.0); Mean Corpuscular Volume 96.3 fL (80.0-100.0); Monocytes # (auto) 0.5 uL; Monocytes % (auto) 8.8 % (0.0-12.0); Neutrophils # (auto) 3.5 uL; Neutrophils % (auto) 57.4 % (37.0-80.0); Nucleated Red Blood Cells % 0.1 %; Platelet Count (auto) 269 10^3/uL (140-450); Red Blood Cells 3.97 10^6/uL (4.5-5.90); Red Cell Distribution Width 13.8 % (11.8-14.3); White Blood Cell 6.1 10^3/uL (4.4-10.8)
[2017-12-24 08:50] LABS: BUN/Creatinine Ratio 31.3; Calcium 8.7 mg/dL (8.5-10.1); Potassium 3.7 mmol/L (3.5-5.1)
[2017-12-24] MEDS: ISOSORBIDE MONONITRATE 60 MG TAB PO SCH (10:19)
[2017-12-24] MEDS: CLOPIDOGREL BISULFATE 75 MG TAB PO SCH (10:19)
[2017-12-24] MEDS: ASPirin-EC 81 mg tab PO SCH (10:20)
[2017-12-24] MEDS: SERTRALINE HCL 50 MG TAB PO SCH (10:20)
[2017-12-24] MEDS: AMIODARONE HCL 200 MG TAB PO SCH ×2 (10:20→22:13)
[2017-12-24] MEDS ORDERED: MORPHINE SULFATE 4 MG/ML SYR/VIAL IV ONE (12:45)
[2017-12-24] MEDS ORDERED: ATORVASTATIN 20 MG TAB PO SCH (22:00)
[2017-12-25 04:57] VITALS: BP 105/59
[2017-12-25] MEDS: buPROPion HCL 75 MG TAB PO SCH (06:43)
[2017-12-25] MEDS: CARVEDILOL 12.5 MG TAB PO SCH (08:52)
[2017-12-25] MEDS: HYDROcodone-ACET 5/325MG TAB PO PRN (09:02)
[2017-12-25 09:30] VITALS: BP 120/64
[2017-12-25] MEDS: ISOSORBIDE MONONITRATE 60 MG TAB PO SCH (10:37)
[2017-12-25] MEDS: ASPirin-EC 81 mg tab PO SCH (10:38)
[2017-12-25] MEDS: AMIODARONE HCL 200 MG TAB PO SCH (10:38)
[2017-12-25] MEDS: SERTRALINE HCL 50 MG TAB PO SCH (10:38)
[2017-12-25] MEDS: CLOPIDOGREL BISULFATE 75 MG TAB PO SCH (10:38)
[2017-12-25 10:41] VITALS: BP 120/64
[2017-12-25 13:00] VITALS: BP 90/52
[2017-12-25 17:07] VITALS: BP 119/68
== END 2017-12-25 16:50 | disposition home or self-care (01) | DRG 243 ==
LOC: EDUNIT# 17:07 → ER 17:07 → EDBD 17:07 → TELE 17:08 → TELE-WESTW 12-24 01:55
PROVIDERS: ADMIT Nurse Practitioner Family; ATTEND Internal Medicine
DX: K21.9 Gastro-esophageal reflux disease without esophagitis (principal); I24.9 Acute ischemic heart disease, unspecified; N17.9 Acute kidney failure, unspecified; I13.0 Hypertensive heart and chronic kidney disease with heart failure and stage 1 through stage 4 chronic kidney disease, or unspecified chronic kidney disease; I50.9 Heart failure, unspecified; E66.01 Morbid (severe) obesity due to excess calories; E88.09 Other disorders of plasma-protein metabolism, not elsewhere classified; N18.3 Chronic kidney disease, stage 3 (moderate); I25.10 Atherosclerotic heart disease of native coronary artery without angina pectoris; F41.9 Anxiety disorder, unspecified; F32.9 Major depressive disorder, single episode, unspecified; R07.89 Other chest pain; Z91.041 Radiographic dye allergy status; Z68.38 Body mass index [BMI] 38.0-38.9, adult; Z80.1 Family history of malignant neoplasm of trachea, bronchus and lung; Z82.3 Family history of stroke; Z82.49 Family history of ischemic heart disease and other diseases of the circulatory system; Z83.3 Family history of diabetes mellitus; Z86.73 Personal history of transient ischemic attack (TIA), and cerebral infarction without residual deficits; Z95.1 Presence of aortocoronary bypass graft; Z95.810 Presence of automatic (implantable) cardiac defibrillator; Z91.19 Patient's noncompliance with other medical treatment and regimen; Z82.5 Family history of asthma and other chronic lower respiratory diseases; I25.2 Old myocardial infarction; Z89.112 Acquired absence of left hand
CPT/HCPCS: 36415; 71045; 80048; 80053; 83735; 83880; 84484; 85025; 85610; 85730; 87081; 93005; 96361; 96374; 96375; 99291; J2405

== ENCOUNTER 2018-04-06 15:46 | Inpatient (IN) | payer MEDICAID ==
[~2018-04-06] VITALS: Ht 182.9 cm; Wt 116.4 kg
[~2018-04-06 15:46] MED LIST changes: -ESCI10TA PO; +SENN1TAB14 PO
[2018-04-06 16:24] LABS: Basophils # (auto) 0.1 uL; Basophils % (auto) 1.1 % (0.0-2.0); Eosinophils # (auto) 0.1 uL; Eosinophils % (auto) 1.2 % (0.0-7.0); Hematocrit 49.2 % (41.0-53.0); Hemoglobin 16.2 g/dL (13.5-17.5); Lymphocytes # (auto) 2.2 uL; Lymphocytes % (auto) 26.4 % (10.0-50.0); Mean Corpuscular Hemoglobin 30.9 pg (28.0-32.0); Mean Corpuscular Volume 93.5 fL (80.0-100.0); Monocytes # (auto) 0.9 uL; Monocytes % (auto) 10.9 % (0.0-12.0); Neutrophils # (auto) 5.1 uL; Neutrophils % (auto) 60.4 % (37.0-80.0); Nucleated Red Blood Cells % 0.1 %; Platelet Count (auto) 303 10^3/uL (140-450); Red Blood Cells 5.26 10^6/uL (4.5-5.90); Red Cell Distribution Width 15.1 % (11.8-14.3); White Blood Cell 8.4 10^3/uL (4.4-10.8)
[2018-04-06 16:37] LABS: Alanine Aminotransferase 20 U/L (16-61); Albumin 3.8 g/dL (3.4-5.0); Anion Gap 14 (5-15); Aspartate Aminotransferase 14 U/L (15-37); BUN/Creatinine Ratio 20.3; Blood Alcohol < 3.0 mg/dL (0-5); Blood Urea Nitrogen 26 mg/dL (7-18); Calcium 8.7 mg/dL (8.5-10.1); Carbon Dioxide 18 mmol/L (21-32); Chloride 105 mmol/L (98-107); GFR African American 73 mL/min; GFR Non-African American 61 mL/min; Glucose 112 mg/dL (74-106); Magnesium 2.3 mg/dL (1.6-2.6); Potassium 4.7 mmol/L (3.5-5.1); Sodium 137 mmol/L (136-145)
[2018-04-06 16:40] LABS: INR 0.99 (0.9-1.15); Partial Thromboplastin Time 26.5 sec (23.78-33.04); Prothrombin Time 10.6 sec (9.27-12.13)
[2018-04-06 16:42] LABS: Alkaline Phosphatase 69 U/L (45-117); Bilirubin, Total 0.3 mg/dL (0.2-1.0); Total Protein 7.8 g/dL (6.4-8.2)
[2018-04-06] MEDS ORDERED: DOCUSATE SOD 100 MG CAP PO PRN (18:15)
[2018-04-06] MEDS ORDERED: MORPHINE SULFATE 10 MG/ML INJ 1ML SDV IV ONE (18:15)
[2018-04-06] MEDS ORDERED: ACETAMINOPHEN 325 MG TAB PO PRN (18:15)
[2018-04-06] MEDS ORDERED: ONDANSETRON HCL 4 MG/2 ML VIAL IV PRN (18:15)
[2018-04-06] MEDS ORDERED: ONDANSETRON HCL 4 MG/2 ML VIAL IV ONE (18:15)
[2018-04-06 18:16] LABS: Urine Bacteria NONE SEEN /hpf (None Seen); Urine Blood Negative /uL (Negative); Urine Hyaline Cast MOD /lpf (0 - 2); Urine Mucus FEW (None Seen); Urine Specific Gravity 1.012 (1.001-1.035); Urine WBC <1 /hpf (0 - 3)
[2018-04-06] MEDS ORDERED: SENNA 8.6 MG TAB PO PRN (18:30)
[2018-04-06] MEDS: ENOXAPARIN SOD 40 MG/0.4 ML SYRINGE SC SCH (19:43)
[2018-04-06] MEDS: SPIRONOLACTONE 25 MG TAB PO SCH (19:43)
[2018-04-06 20:21] VITALS: BP_SYST 91; BP_DIAS 52; BP_DIAS 64
--- NOTE | 2018-04-06 20:50 | NUR ---
Telemetry admit from BRANDAN BUSTAMANTE admitted to Telemetry unit. Patient oriented to JOSE BRAVO, primary RN, unit, room, bed, and unit policies regarding patient care and visiting hours. Patient now on continuous telemetry monitoring, tele box # 18 and telemetry reading on arrival to unit is Vpaced. Patient weighed by bedscale and encouraged to call if they need something. All questions and concerns addressed, patient verbalized understanding.
[2018-04-06] MEDS: MORPHINE SULFATE 10 MG/ML INJ 1ML SDV IV PRN (21:00)
--- NOTE | 2018-04-06 21:20 | NUR ---
MRSA sample collected and sent to lab via bullet
[2018-04-06 22:00] VITALS: BP_SYST 108; BP_SYST 91; BP_DIAS 52; BP_DIAS 77
[2018-04-06] MEDS ORDERED: FAMOTIDINE 20 MG TAB PO SCH (22:00)
[2018-04-06] MEDS: TEMAZEPAM 15 MG CAP PO PRN (22:19)
[2018-04-06] MEDS: FAMOTIDINE 20 MG TAB PO SCH (22:19)
[2018-04-06] MEDS: CARVEDILOL 3.125 MG TAB PO SCH (23:08)
[2018-04-07] MEDS ORDERED: FLUO-125 PO (01:57)
[2018-04-07] MEDS ORDERED: LORA-654 PO (01:59)
[2018-04-07] MEDS ORDERED: ZOLP12.564 PO (02:05)
[2018-04-07 05:00] VITALS: BP 108/75
[2018-04-07] MEDS: MORPHINE SULFATE 10 MG/ML INJ 1ML SDV IV PRN ×3 (06:08→14:00)
[2018-04-07] MEDS: SPIRONOLACTONE 25 MG TAB PO SCH ×2 (06:08→18:00)
[2018-04-07 06:37] LABS: Basophils # (auto) 0.1 uL; Basophils % (auto) 0.8 % (0.0-2.0); Eosinophils # (auto) 0.2 uL; Eosinophils % (auto) 1.8 % (0.0-7.0); Hemoglobin 15.1 g/dL (13.5-17.5); Lymphocytes # (auto) 2.5 uL; Lymphocytes % (auto) 27.3 % (10.0-50.0); Mean Corpuscular Hemoglobin 32.1 pg (28.0-32.0); Mean Corpuscular Hgb Conc. 34.4 g/dL (32.0-36.0); Mean Corpuscular Volume 93.5 fL (80.0-100.0); Monocytes # (auto) 0.8 uL; Monocytes % (auto) 9.1 % (0.0-12.0); Neutrophils # (auto) 5.6 uL; Platelet Count (auto) 244 10^3/uL (140-450); Red Cell Distribution Width 14.7 % (11.8-14.3); White Blood Cell 9.3 10^3/uL (4.4-10.8)
[2018-04-07 06:51] LABS: Albumin 3.4 g/dL (3.4-5.0); Anion Gap 9 (5-15); Blood Urea Nitrogen 33 mg/dL (7-18); Calcium 8.4 mg/dL (8.5-10.1); Carbon Dioxide 22 mmol/L (21-32); Chloride 103 mmol/L (98-107); Glucose 89 mg/dL (74-106); Potassium 4.4 mmol/L (3.5-5.1); Sodium 134 mmol/L (136-145)
[2018-04-07 06:56] LABS: Alanine Aminotransferase 18 U/L (16-61); Alkaline Phosphatase 57 U/L (45-117); Aspartate Aminotransferase 12 U/L (15-37); BUN/Creatinine Ratio 27.3; Bilirubin, Total 0.4 mg/dL (0.2-1.0); GFR African American > 60 mL/min; GFR Non-African American > 60 mL/min
--- NOTE | 2018-04-07 07:25 | NUR ---
Opening Shift Note Assumed care of patient, awake and alert. No S/S of distress/SOB;chronic chest pain reported 3/10 at a tolerable level;pain management in place and it effective.Patient has a positive history for depression and anxiety; denied thoughts of suicide or violent thoughts. Instructed on POC and to call for assist PRN, will continue to monitor for changes Q1hr and PRN.
[2018-04-07 08:55] VITALS: BP 105/69
[2018-04-07] MEDS: CARVEDILOL 3.125 MG TAB PO SCH ×2 (10:00→22:00)
[2018-04-07] MEDS: POTASSIUM CHLORIDE 8 MEQ TAB PO SCH ×2 (10:00→22:11)
[2018-04-07] MEDS: FAMOTIDINE 20 MG TAB PO SCH ×2 (10:00→22:11)
[2018-04-07] MEDS: ZINC SULFATE 220mg CAP or TAB PO SCH (10:00)
[2018-04-07] MEDS: ASPirin-EC 325mg tab PO SCH (10:00)
[2018-04-07] MEDS: buPROPion HCL 75 MG TAB PO SCH (10:00)
[2018-04-07] MEDS: CLOPIDOGREL BISULFATE 75 MG TAB PO SCH (10:00)
[2018-04-07 12:42] VITALS: BP 107/71
--- NOTE | 2018-04-07 15:48 | NUR ---
NEW ORDER FROM DR GARCIA FOR ATIVAN PRN ANXIETY TO BE CARRIED OUT
[2018-04-07] MEDS ORDERED: LORazepam 0.5 MG TAB PO PRN (16:00)
[2018-04-07 17:00] VITALS: BP 96/68
--- NOTE | 2018-04-07 17:27 | NUR ---
ROUNDING PATIENT RESTING COMFORTABLY; RESPIRATIONS RELAXED AND EVEN.
--- NOTE | 2018-04-07 17:55 | NUR ---
DR GARCIA BEDSIDE PER DR Swann/Deana MORPHINE PRN AND ATIVAN D/T EPISODES OF SYNCOPE.
[2018-04-07] MEDS: ENOXAPARIN SOD 40 MG/0.4 ML SYRINGE SC SCH (18:00)
--- NOTE | 2018-04-07 19:30 | NUR ---
Opening Shift Note Received report from David PANTOJA. Assumed care of patient, awake and alert. No S/S of distress/SOB or pain. Instructed on POC and to call for assist PRN. Bed in lowest position, side rails up x2, bed alarm on, call light in reach, will continue to monitor for changes Q1hr and PRN.
[2018-04-07 20:00] VITALS: BP 107/72
[2018-04-07 20:50] VITALS: BP 107/72
[2018-04-07] MEDS: TEMAZEPAM 15 MG CAP PO PRN (22:06)
--- NOTE | 2018-04-08 01:10 | NUR ---
Rounding Patient sleeping at this time, no sob/distress or pain.
--- NOTE | 2018-04-08 03:41 | NUR ---
Patient sleeping on his R side, no sob/distress noted. Continue care.
[2018-04-08 05:00] VITALS: BP 100/65
[2018-04-08] MEDS: SPIRONOLACTONE 25 MG TAB PO SCH ×2 (06:06→19:03)
[2018-04-08 08:46] VITALS: BP 96/61
--- NOTE | 2018-04-08 09:00 | NUR ---
DR CONSTANCE DAVIDSON MD INSTRUCTED TO HOLD BLOOD PRESSURE MEDICATIONS D/T EPISODES OF SYNCOPE AND MONITOR BLOOD PRESSURE
[2018-04-08] MEDS: ASPirin-EC 325mg tab PO SCH (10:00)
[2018-04-08] MEDS: ZINC SULFATE 220mg CAP or TAB PO SCH (10:00)
[2018-04-08] MEDS: CARVEDILOL 3.125 MG TAB PO SCH ×2 (10:00→21:44)
[2018-04-08] MEDS: buPROPion HCL 75 MG TAB PO SCH (10:00)
[2018-04-08] MEDS: POTASSIUM CHLORIDE 8 MEQ TAB PO SCH ×2 (10:00→21:44)
[2018-04-08] MEDS: CLOPIDOGREL BISULFATE 75 MG TAB PO SCH (10:00)
[2018-04-08] MEDS: FAMOTIDINE 20 MG TAB PO SCH ×2 (10:00→21:44)
[2018-04-08] MEDS: HYDROcodone-ACET 5/325MG TAB PO PRN ×2 (12:16→19:04)
[2018-04-08 13:00] VITALS: BP 115/76
--- NOTE | 2018-04-08 14:59 | NUR ---
endorsed care to hemal PANTOJA
--- NOTE | 2018-04-08 15:11 | NUR ---
Opening Shift Note Assumed care of patient after receiving report from David PANTOJA. Patient is awake and alert. Patient is currently on room air with even and unlabored respirations. No S/S of distress/SOB. Pain reported at an 4/10 as normal chronic chest pressure. patient comfortable at this time. Instructed on POC and to call for assist PRN, will continue to monitor for changes Q1hr and PRN.
[2018-04-08 17:00] VITALS: BP 106/74
[2018-04-08] MEDS: ENOXAPARIN SOD 40 MG/0.4 ML SYRINGE SC SCH (19:03)
--- NOTE | 2018-04-08 19:20 | NUR ---
Closing Note Patient awake and alert. No S/S of distress/SOB. Pain now 5/ but [place] was recently given. Report given and care endorsed to KIT Mccallum.
--- NOTE | 2018-04-08 19:25 | NUR ---
Opening Shift Note Received report from Ana PANTOJA. Assumed care of patient, awake and alert. No S/S of distress/SOB or pain. Instructed on POC and to call for assist PRN. Fall precaution measures in place, will continue to monitor for changes Q1hr and PRN.
[2018-04-08 20:00] VITALS: BP 98/66
[2018-04-08] MEDS: TEMAZEPAM 15 MG CAP PO PRN (21:44)
[2018-04-08 22:00] VITALS: BP 98/66
--- NOTE | 2018-04-08 23:17 | NUR ---
Call from [facility], spoke to rBaden stating patient had a runs of 16 beats V Tach, will assess the patient.
--- NOTE | 2018-04-08 23:19 | NUR ---
Went in to assess patient. Patient is sleeping at the moment. Checked vitals: HR57 RR19 BP 103/69 95% O2. Patient asymptomatic, no chest pain or SOB, will continue to monitor.
--- NOTE | 2018-04-09 02:29 | NUR ---
Rounding Patient sleeping on prone position at this time, will continue care.
[2018-04-09 05:00] VITALS: BP 98/64
[2018-04-09] MEDS: SPIRONOLACTONE 25 MG TAB PO SCH (06:08)
--- NOTE | 2018-04-09 07:30 | NUR ---
Patient resting at this time, no sob/distress or pain. Endorsed care to Slade PANTOJA.
--- NOTE | 2018-04-09 07:45 | NUR ---
Opening Shift Note Assumed care of patient, asleep. No S/S of distress/SOB or pain. Will continue to monitor for changes Q1hr and PRN.
[2018-04-09 09:00] VITALS: BP 107/72
--- NOTE | 2018-04-09 09:40 | NUR ---
Patient is off unit. Addendum: 04/09/18 at 1005 by FATOUMATA ZAMORANO RN wrong entry
[2018-04-09] MEDS: ZINC SULFATE 220mg CAP or TAB PO SCH (09:42)
[2018-04-09] MEDS: POTASSIUM CHLORIDE 8 MEQ TAB PO SCH (09:42)
[2018-04-09 09:43] LABS: Anion Gap 6 (5-15); BUN/Creatinine Ratio 18.8; Blood Urea Nitrogen 19 mg/dL (7-18); Calcium 8.6 mg/dL (8.5-10.1); Carbon Dioxide 23 mmol/L (21-32); Chloride 107 mmol/L (98-107); GFR African American > 60 mL/min; GFR Non-African American > 60 mL/min; Glucose 160 mg/dL (74-106); Potassium 4.3 mmol/L (3.5-5.1); Sodium 136 mmol/L (136-145)
[2018-04-09] MEDS: ASPirin-EC 325mg tab PO SCH (09:43)
[2018-04-09] MEDS: buPROPion HCL 75 MG TAB PO SCH (09:43)
[2018-04-09] MEDS: CLOPIDOGREL BISULFATE 75 MG TAB PO SCH (09:43)
[2018-04-09] MEDS: FAMOTIDINE 20 MG TAB PO SCH ×2 (09:43→21:40)
[2018-04-09] MEDS: HYDROcodone-ACET 5/325MG TAB PO PRN ×2 (09:52→15:29)
--- NOTE | 2018-04-09 10:40 | NUR ---
DR. GARCIA AT BEDSIDE.
[2018-04-09] MEDS ORDERED: FUROSEMIDE 40 MG/4 ML VIAL IV ONE (10:45)
[2018-04-09 13:00] VITALS: BP 107/72
--- NOTE | 2018-04-09 15:51 | NUR ---
Patient complained of chest pain. EKG done attached to chart. Cannot give Nitroglycerin and Morphine right now as patient has low blood pressure.
[2018-04-09 16:44] VITALS: BP 104/60
[2018-04-09] MEDS: ENOXAPARIN SOD 40 MG/0.4 ML SYRINGE SC SCH (18:44)
--- NOTE | 2018-04-09 19:16 | NUR ---
CLOSING NOTE PATIENT RESTING IN BED, NO SIGNS OF DISTRESS NOTED.
--- NOTE | 2018-04-09 19:45 | NUR ---
ASSUMED CARE, PT. AWAKE, NO C/O PAIN, NO SOB.
[2018-04-09 20:49] VITALS: BP 113/74
[2018-04-09] MEDS: MORPHINE SULFATE 10 MG/ML INJ 1ML SDV IV PRN (20:51)
[2018-04-09 22:09] VITALS: BP 113/74
[2018-04-09] MEDS: TEMAZEPAM 15 MG CAP PO PRN (23:07)
[2018-04-10 05:56] VITALS: BP 89/57
--- NOTE | 2018-04-10 07:53 | NUR ---
Opening Shift Note Assumed care of patient, awake and alert. No S/S of distress/SOB or pain. Instructed on POC and to call for assist PRN, will continue to monitor for changes Q1hr and PRN. Bed in lowest position, side rails up x2 call light within reach. Patient encouraged to call if they need anything.
[2018-04-10 08:00] VITALS: BP 104/79
[2018-04-10 09:00] VITALS: BP 104/79
[2018-04-10] MEDS: CLOPIDOGREL BISULFATE 75 MG TAB PO SCH (09:18)
[2018-04-10] MEDS: ASPirin-EC 325mg tab PO SCH (09:18)
[2018-04-10] MEDS: ZINC SULFATE 220mg CAP or TAB PO SCH (09:18)
[2018-04-10] MEDS: buPROPion HCL 75 MG TAB PO SCH (09:19)
[2018-04-10] MEDS: FAMOTIDINE 20 MG TAB PO SCH ×2 (09:19→21:09)
[2018-04-10 13:00] VITALS: BP 114/81
--- NOTE | 2018-04-10 13:18 | NUR ---
IV removal IV DC'd to left forearm with sterile technique, catheter fully intact. Pressure dressing applied to site. Patient tolerated procedure well. Discharged with aftercare instructions per MD. NOTE:
--- NOTE | 2018-04-10 13:19 | NUR ---
IV insertion IV access obtained, via clean sterile technique by inserting 22 gauge catheter at RIGHT after 4 attempt(s). IV secured properly. No trauma to site. Patient tolerated well. NOTE:
[2018-04-10] MEDS: MORPHINE SULFATE 10 MG/ML INJ 1ML SDV IV PRN ×2 (13:48→18:13)
--- NOTE | 2018-04-10 14:57 | NUR ---
assessment Patient is a 62 year old male who is alert and oriented. Patients cognitive abilities are intact. Prior to admission patient lived home with family and functioned with assistance. Per patient he was taking out the trash and fainted in the driveway. Patient informed me he was at [facility] last month and did well when he fainted last time. Patient has a fww for home use. Patients PCP is Dr Monteiro. I informed patient he has a right to speak to a secondary social studies teacher regarding all care. I informed patient he has a right to participate in any and all discharge planning. Patient is aware of visiting hours on the hospital floor. I informed patient he has a right to privacy. Patient does not have a POA and advanced directive. I have offered patient information on POA and advanced directives. I informed the patient the advantages and benefits of having an Advanced Directive. Patient verbalized understanding and agreed to discharge plan. Per consult DC to SNF tomorrow. MD order has been sent to [facility]. Waiting on reply back now. Filiberto residential case manager getting auth for SNF and transportation. Addendum: 04/10/18 at 1459 by Ana JUNG Amended: Links added.
--- NOTE | 2018-04-10 14:57 | NUR ---
ORDER AND CLINICALS FAXED TO [facility] REQUESTING AUTH FOR SNF AND TRANSPORTATION.
[2018-04-10 17:59] VITALS: BP 111/81
[2018-04-10] MEDS: ENOXAPARIN SOD 40 MG/0.4 ML SYRINGE SC SCH (18:13)
--- NOTE | 2018-04-10 19:20 | NUR ---
assumed care, pt. awake, no c/o pain, no sob.
[2018-04-10] MEDS: TEMAZEPAM 15 MG CAP PO PRN (21:09)
[2018-04-10 22:00] VITALS: BP 101/67
--- NOTE | 2018-04-10 23:01 | NUR ---
seen by dr. sarmiento, no order made.
--- NOTE | 2018-04-11 03:41 | NUR ---
report given to shahbaz monaco.
--- NOTE | 2018-04-11 03:44 | NUR ---
REPORT RECEIVED FROM LEXI PANTOJA. WILL ASSUME PT CARE.
[2018-04-11 05:00] VITALS: BP 99/64
[2018-04-11] MEDS: HYDROcodone-ACET 5/325MG TAB PO PRN ×2 (08:12→15:53)
[2018-04-11] MEDS: CLOPIDOGREL BISULFATE 75 MG TAB PO SCH (08:51)
[2018-04-11] MEDS: FAMOTIDINE 20 MG TAB PO SCH ×2 (08:51→22:10)
[2018-04-11] MEDS: ZINC SULFATE 220mg CAP or TAB PO SCH (08:51)
[2018-04-11] MEDS: ASPirin-EC 325mg tab PO SCH (08:51)
[2018-04-11] MEDS: buPROPion HCL 75 MG TAB PO SCH (08:51)
[2018-04-11 09:00] VITALS: BP 91/72
[2018-04-11] MEDS: MORPHINE SULFATE 10 MG/ML INJ 1ML SDV IV PRN ×2 (10:04→21:21)
--- NOTE | 2018-04-11 10:58 | NUR ---
JEWELL SPIVEY, INSTRUCTIONAL TECHNOLOGY COACH RE: SNF PLACEMENT. WAITING FOR CALL BACK.
--- NOTE | 2018-04-11 12:17 | NUR ---
Paged supportive employment case manager re: SNF placement.
[2018-04-11 13:00] VITALS: BP 88/68
--- NOTE | 2018-04-11 13:10 | NUR ---
SPOKE TO CHACORTA KELLER, CHURCH MUSICIAN. ASKED HER REGARDING SNF PLACEMENT FOR PATIENT. CHACORTA STATES THAT HE HAS NOT BEEN ACCEPTED YET AND SHE WILL GIVE ME A CALL BACK.
--- NOTE | 2018-04-11 13:45 | NUR ---
RECEIVED CALL FROM CHACORTA KELLER, STATES THAT [facility] HAS NOT ACCEPTED THE PATIENT. WILL INFORM PATIENT. Addendum: 04/11/18 at 1347 by FATOUMATA ZAMORANO RN CONTINUATION CHACORTA STATES SHE WILL SEND IT TO OTHER SNF.
--- NOTE | 2018-04-11 15:31 | NUR ---
Informed Dr. Monteiro re: patient not accepted at [facility] and showcase trimmer is working on sending the order to other long term facility.
--- NOTE | 2018-04-11 15:40 | NUR ---
Asked Dr. Monteiro if he wants chest pain protocol done each time the patient complain of chest. Dr. Monteiro states "NO".
--- NOTE | 2018-04-11 16:10 | NUR ---
PAGED CHACORTA KELLER, SHAKE TABLE OPERATOR RE: PATIENT REQUESTING TO TALK TO BOTTLE LINE WORKER.
[2018-04-11 17:33] VITALS: BP 117/77
--- NOTE | 2018-04-11 17:39 | NUR ---
re-assessment Per Lina at [facility] they will not accept patient back. order has been re-directed to [facility] and to [facility]. Per Makenzie at [facility] [phone] she does not have a male bed until Saturday. Waiting for reply back from [facility] [phone]. Addendum: 04/11/18 at 1743 by Ana JUNG Amended: Links added.
--- NOTE | 2018-04-11 17:42 | NUR ---
re-assessment Per Faizan Dorsey case advocate [facility] auth for SNF is [id number] auth for [facility] [id number] Addendum: 04/11/18 at 1743 by Ana Enriquez SS Amended: Links added.
[2018-04-11] MEDS: SODIUM CHLOR 0.9% PF (SALINE LOCK) 10ML VIAL/SYR IV SCH (18:10)
[2018-04-11] MEDS: ENOXAPARIN SOD 40 MG/0.4 ML SYRINGE SC SCH (18:16)
--- NOTE | 2018-04-11 19:30 | NUR ---
Closing note Patient resting in bed, no signs of distress noted.
--- NOTE | 2018-04-11 19:50 | NUR ---
Opening Shift Note Assumed care of patient, awake and alert. No S/S of distress/SOB or pain. Bed in lowest locked position, side rails up x2, call light within reach. Instructed on POC and to call for assist PRN, will continue to monitor for changes Q1hr and PRN.
--- NOTE | 2018-04-11 20:45 | NUR ---
Chest Pain Notified by charge nurse Alis PANTOJA that patient was reporting 8/10 chest pain, no radiation. Patient placed on 2.0 liters oxygen via nasal cannula, tolerating well. EKG performed and placed in hard chart. Vital signs at this time were blood pressure 114/69 with 83 heart rate, pulse oxygenation of 95%, and the aforementioned 8/10 chest pain. One dose of Nitroglycerin administered as ordered at 20:50. Reassessed patient at 20:55, pain now 7/10, blood pressure 107/61, 79 heart rate, and pulse oxygenation at 97%. Second dose of Nitroglycerin administered at this time. Reassessed patient at 21:00, pain still at 7/10, blood pressure 123/69, 80 heart rate, and pulse oxygenation at 96%. Third dose Nitroglycerin administered at this time. Reassessed patient at 21:21, pain still at 7/10, blood pressure 105/78, 72 heart rate, and pulse oxygenation at 95%. Morphine administered as ordered. Patient reassessed at 21:51, reports that pain is now down to "three or four out of ten" and that this pain level is "tolerable". No s/s of distress. No other needs at this time. Will continue to monitor. Addendum: 04/12/18 at 0226 by ZENIA PADILLA RN RN ADDITION: Dr. Monteiro already aware of recurrent chest pain, will continue to monitor patient.
[2018-04-11] MEDS: NITROGLYCERIN 0.4 MG SL TAB SL PRN ×4 (20:50→21:00)
[2018-04-11 21:26] VITALS: BP_SYST 115; BP_SYST 157; BP_SYST 160; BP_DIAS 72; BP_DIAS 74; BP_DIAS 86
[2018-04-11] MEDS: TEMAZEPAM 15 MG CAP PO PRN (22:10)
[2018-04-12] MEDS: SODIUM CHLOR 0.9% PF (SALINE LOCK) 10ML VIAL/SYR IV SCH ×5 (02:07→18:00)
[2018-04-12 05:00] VITALS: BP 115/77
--- NOTE | 2018-04-12 07:35 | NUR ---
Closing Note Patient lying in bed, eyes closed, respirations even and unlabored, appears asleep. Bed in lowest locked position, side rails up x2, call light within reach. No s/s of distress. Care endorsed to dayshift RN.
--- NOTE | 2018-04-12 07:50 | NUR ---
Opening Shift Note Assumed care of patient, awake and alert. No S/S of distress/SOB or pain. Instructed on POC and to call for assist PRN, will continue to monitor for changes Q1hr and PRN.
--- NOTE | 2018-04-12 08:30 | NUR ---
Patient assisted to the bathroom and back to bed with minimal assist. Instructed patient to call for assistance if he wants to get up from bed as he still feels dizzy.
[2018-04-12 09:00] VITALS: BP 125/66
[2018-04-12] MEDS: ZINC SULFATE 220mg CAP or TAB PO SCH (09:08)
[2018-04-12] MEDS: MORPHINE SULFATE 10 MG/ML INJ 1ML SDV IV PRN ×3 (09:08→18:28)
[2018-04-12] MEDS: buPROPion HCL 75 MG TAB PO SCH (09:09)
[2018-04-12] MEDS: CLOPIDOGREL BISULFATE 75 MG TAB PO SCH (09:09)
[2018-04-12] MEDS: FAMOTIDINE 20 MG TAB PO SCH (09:09)
--- NOTE | 2018-04-12 09:45 | NUR ---
Received a call from PT. Dillon States he found the patient on the floor and he put the patient back to bed.
--- NOTE | 2018-04-12 09:50 | NUR ---
Unwitnessed fall Checked on the patient. Patient states he had a fall and he hit his head on the trash can and on the wall. Vital signs checked: BP:110/74 mmHg, HR:77, Temp 97.9, O2 sat 95% on room air. No fractures noted upon assessment. Checked patient's head, redness noted, no swelling noted. Ice pack applied on head. James charge nurse informed. Informed Dr. Monteiro if he wants further orders, waiting for reply.
[2018-04-12] MEDS ORDERED: ASPirin-EC 81 mg tab PO SCH (10:00)
--- NOTE | 2018-04-12 10:00 | NUR ---
Theo Crouch, case mgr as patient wants to talk to her.
--- NOTE | 2018-04-12 10:15 | NUR ---
Willa called back and she spoke to the patient .
--- NOTE | 2018-04-12 10:30 | NUR ---
James, charge nurse informed that patient wants to talk to her.
--- NOTE | 2018-04-12 10:35 | NUR ---
Instructed patient to call for assistance if he wants to get up. Bed alarm activated.
--- NOTE | 2018-04-12 10:50 | NUR ---
Spoke to James, states she talked to the patient.
--- NOTE | 2018-04-12 11:16 | NUR ---
Dr. Monteiro contacted back, new order made.
[2018-04-12 13:00] VITALS: BP 101/67
--- NOTE | 2018-04-12 14:40 | NUR ---
Contacted Dr. Monteiro and left a message re: head CT result. Waiting for reply.
--- NOTE | 2018-04-12 15:22 | NUR ---
DR. GARCIA CONTACTED BACK AND STATES OKAY FOR DISCHARGE.
--- NOTE | 2018-04-12 15:23 | NUR ---
SPOKE TO SHREYA, INFORMED THAT DR. GARCIA IS OKAY TO PROCEED DISCHARGE. SHREYA STATES THAT SHE WILL ARRANGE FOR TRANSPORTATION.
[2018-04-12 17:00] VITALS: BP 108/77
--- NOTE | 2018-04-12 17:57 | NUR ---
Report given to KIT Caceres at [facility].
[2018-04-12] MEDS: ENOXAPARIN SOD 40 MG/0.4 ML SYRINGE SC SCH (18:00)
--- NOTE | 2018-04-12 19:00 | NUR ---
Report given to night RN.
--- NOTE | 2018-04-12 19:30 | NUR ---
Opening Shift Note Assumed care of patient, awake and alert. No S/S of distress/SOB or pain. Bed in lowest locked position, side rails up x2, call light within reach, bed alarm on. Instructed on POC and to call for assist PRN, will continue to monitor for changes Q1hr and PRN.
--- NOTE | 2018-04-12 19:52 | NUR ---
Discharge Transfer to [facility] Discharge instructions given as ordered. Encourage to follow up with PMD as instructed. All questions and concerns addressed. Patient verbalized understanding. Medication reconciliation form completed and copy given to patient by kelsey RN. Home medications held in Pharmacy returned to patient by kelsey RN. IV removed with catheter intact, pressure dressing applied by kelsey RN. Telemetry unit returned to [facility]. Patient transported via gurney by [facility] staff Saul. No distress noted at time of departure.
--- NOTE | 2018-04-15 08:13 | NUR ---
o/c note 04/12/18 [facility] primary RN called stating pt asking when he is going to snf . Per ss notes no bed available till saturday at [facility] and snf packet also faxed to [facility]. I called pt and informed him of transfer process. Pt wanted to know why [facility] did not want him back. I stated I did not talk with [facility] and that Ana ss had but no notes specifically why no return. 1030 hrs Called [facility] and spoke to [facility] digital project coordinator. stated he had to review snf packet 1209 hrs, [facility] stated they will accept pt. 1538 hrs I called [facility] and she stated medically cleared for d/c 1640 hrs called DEMETRIA Malik to order picker pt at 1900 hrs , rm [id number] and accepting MD Neri. Rn given phone # to [facility] for report
== END 2018-04-12 19:52 | DRG 204 ==
LOC: EDBD 15:46 → ER 15:46 → TELE 17:06 → TELE-WESTW 20:16
PROVIDERS: ADMIT Internal Medicine; ATTEND Internal Medicine
DX: R55 Syncope and collapse (principal); I24.9 Acute ischemic heart disease, unspecified; I11.0 Hypertensive heart disease with heart failure; I50.9 Heart failure, unspecified; K21.9 Gastro-esophageal reflux disease without esophagitis; I25.10 Atherosclerotic heart disease of native coronary artery without angina pectoris; E78.5 Hyperlipidemia, unspecified; Z53.20 Procedure and treatment not carried out because of patient's decision for unspecified reasons; G47.10 Hypersomnia, unspecified; I25.5 Ischemic cardiomyopathy; E66.9 Obesity, unspecified; Z68.34 Body mass index [BMI] 34.0-34.9, adult; I25.2 Old myocardial infarction; Z79.02 Long term (current) use of antithrombotics/antiplatelets; Z79.82 Long term (current) use of aspirin; Z79.899 Other long term (current) drug therapy; Z80.1 Family history of malignant neoplasm of trachea, bronchus and lung; Z82.3 Family history of stroke; Z82.49 Family history of ischemic heart disease and other diseases of the circulatory system; Z82.5 Family history of asthma and other chronic lower respiratory diseases; Z83.3 Family history of diabetes mellitus; Z95.1 Presence of aortocoronary bypass graft
CPT/HCPCS: 36415; 70450; 71045; 72125; 80048; 80053; 80320; 81001; 83735; 84484; 85025; 85610; 85730; 87081; 93005; 94761; 95819; 96372; 96374; 96375; G0378; J2405